=== PATIENT | female | born 1965 | race Hispanic/Latino ===

== ENCOUNTER 2016-08-05 16:38 | Observation (INO) | payer MEDICAID ==
[2016-08-05 18:22] LABS: BASO % 0.6 % (0.0-2.0); EOS # 0.1 K/uL (0.0-0.7); EOS % 2.1 % (0.0-4.0); HEMOGLOBIN 11.7 g/dL (11.0-16.0); LYMPH # 1.3 K/uL (1.0-4.3); LYMPH % 24.7 % (20.0-40.0); MEAN CELL VOLUME 86.6 fL (81.0-99.0); MEAN CORPUSCULAR HEMOGLOBIN 28.1 pg (27.0-31.0); MEAN CORPUSCULAR HGB CONC 32.5 g/dL (33.0-37.0); MEAN PLATELET VOLUME 7.1 fL (7.2-11.7); MONO # 0.5 K/uL (0.0-0.8); MONO % 9.1 % (0.0-10.0); NEUT # 3.3 K/uL (1.8-7.0); NEUT % 63.5 % (50.0-75.0); NRBC % 0.1 % (0.0-2.0); RBC 4.16 Mil/uL (3.80-5.20); RED CELL DISTRIBUTION WIDTH 14.5 % (11.5-14.5); WHITE BLOOD COUNT 5.2 K/uL (4.8-10.8)
[2016-08-05 18:32] LABS: ALBUMIN 2.8 g/dL (3.5-5.0)
[2016-08-05 18:35] LABS: ALB/GLOB RATIO 0.8 (1.0-2.1); ALT/SGPT 22 U/L (9-52); AST/SGOT 24 U/L (14-36); BLOOD UREA NITROGEN 13 mg/dL (7-17); GFR AFRICAN-AMERICAN > 60; GFR NON-AFRICAN AMERICAN > 60
[2016-08-05 18:36] LABS: CALCIUM 8.3 mg/dl (8.6-10.4)
[2016-08-05 18:43] LABS: SQUAMOUS EPITHIAL 1 /hpf (0-5); URINE BACTERIA RARE (<OCC); URINE BILIRUBIN NEGATIVE (NEGATIVE); URINE BLOOD NEGATIVE (NEGATIVE); URINE CLARITY Clear (Clear); URINE COLOR Yellow (YELLOW); URINE GLUCOSE (UA) NORMAL (Normal); URINE LEUKOCYTE ESTERASE NEG Leu/uL (Negative); URINE NITRATE NEGATIVE (NEGATIVE); URINE PROTEIN NEGATIVE (NEGATIVE)
[2016-08-05 18:45] LABS: HCG,QUALITATIVE URINE NEGATIVE (NEGATIVE)
[2016-08-05 18:49] LABS: BARBITURATES, UR NEGATIVE (NEGATIVE); BENZODIAZEPINES, UR NEGATIVE (NEGATIVE)
[2016-08-05 18:53] LABS: OPIATES, UR POSITIVE (NEGATIVE); PHENCYCLIDINE, UR NEGATIVE (NEGATIVE)
--- NOTE | 2016-08-05 19:40 | C.PDOC ---
History Of Present Illness <Siddharth Donald - Last Filed: 08/06/16 05:43> <IndioMaria Guadalupe Ellie - Last Filed: 08/10/16 18:48> Patient CLIF for psychiatric evaluation, apparently called 911 from [employer] [facility] stating that she doesn't want to live anymore. Patient denies specific plan for self harm, and denies suicidal ideations - states she will from "full blown AIDS". (Maria Guadalupe Borjas) <Siddharth Donald - Last Filed: 08/06/16 05:43> History Per: Patient, EMS History/Exam Limitations: other (agitation) Onset/Duration Of Symptoms: Unknown Current Symptoms Are (Timing): Still Present <Maria Guadalupe Borjas Ellie - Last Filed: 08/10/16 18:48> Time Seen by Provider: 08/05/16 16:44 Chief Complaint (Nursing): Psychiatric Evaluation Past Medical History Reviewed: Historical Data, Nursing Documentation, Vital Signs - Medical History PMH: Anxiety, Asthma, Bipolar Disorder, Bronchitis, COPD, Depression, Emphysema , HIV, Seizures (s/p craniotomy) Family History: States: No Known Family Hx - Social History Hx Tobacco Use: Yes Hx Alcohol Use: Yes Hx Substance Use: Yes (heroin) - Immunization History Hx Tetanus Toxoid Vaccination: No Hx Influenza Vaccination: Yes Hx Pneumococcal Vaccination: No <IndioMaria Guadalupe - Last Filed: 08/10/16 18:48> Vital Signs: Last Vital Signs Temp 98.4 F 08/06/16 03:25 Pulse 61 08/06/16 03:25 Resp 16 08/06/16 03:25 BP 132/89 08/06/16 03:25 Pulse Ox 95 08/06/16 03:25 - [facility] Procedures DETOXIFICATION SERVICES FOR SUBSTANCE ABUSE TREATMENT (04/09/16) Review Of Systems Except As Marked, All Systems Reviewed And Found Negative. Cardiovascular: Negative for: Chest Pain, Palpitations Respiratory: Negative for: Shortness of Breath Gastrointestinal: Negative for: Nausea, Vomiting, Abdominal Pain, Diarrhea Psych: Positive for: Suicidal ideation <Maria Guadalupe Borjas - Last Filed: 08/10/16 18:48> Physical Exam - Physical Exam Appears: Non-toxic, In Acute Distress (agitated) Oral Mucosa: Moist Cardiovascular: Rhythm Regular Respiratory: Normal Breath Sounds, No Rales, No Rhonchi, No Wheezing Gastrointestinal/Abdominal: Normal Exam, Bowel Sounds, Soft, No Tenderness Extremity: Normal ROM Extremity: Bilateral: Atraumatic, Normal Color And Temperature, Normal ROM Neurological/Psych: Oriented x3 <Maria Guadalupe Borjas - Last Filed: 08/10/16 18:48> ED Course And Treatment - Laboratory Results Result Diagrams: 08/05/16 18:19 08/05/16 18:19 Lab Interpretation: Abnormal (tox + cocaine/opiates) Pulse Ox Interpretation: Normal Reevaluation Time: 05:44 Reassessment Condition: Improved (coherent, refuses to speak with Crisis workers , wants meds for withdrawal symptoms but uncooperative with staff. Wants immediate discharge, now denies SI/HI) <Siddharth Donald - Last Filed: 08/06/16 05:43> - Laboratory Results Result Diagrams: 08/05/16 18:19 08/05/16 18:19 O2 Sat by Pulse Oximetry: 96 (RA) Pulse Ox Interpretation: Normal Progress Note: While nurse trying to get blood work, patient started screaming and yelling, spitting at staff, belligerent. Ativan 2mg + Haldol 10mg IM ordered. 7:35pm- Patient medically cleared. Pending crisis. Reassessment Condition: Improved <Maria Guadalupe Borjas - Last Filed: 08/10/16 18:48> Medical Decision Making <Siddharth Donald - Last Filed: 08/06/16 05:43> <Maria Guadalupe Borjas - Last Filed: 08/10/16 18:48> Medical Decision Making: homeless, cocaine/heroine abuse. (Siddharth Donald) Disposition Doctor Will See Patient In The: Office Counseled Patient/Family Regarding: Studies Performed, Diagnosis - Disposition Disposition Time: 05:45 <Siddharth Donald - Last Filed: 08/06/16 05:43> - Disposition Disposition Time: 01:15 <Maria Guadalupe Borjas - Last Filed: 08/10/16 18:48> - Disposition Condition: STABLE - Clinical Impression Clinical Impression: Substance abuse, Depression Addendum <Siddharth Donald - Last Filed: 08/06/16 05:43> <Maria Guadalupe Borjas - Last Filed: 08/10/16 18:48> Addendum: 08/06/16 05:33 Upon re-evaluation patient seems bizzare and nonsensical. Patient denies any opiate or cocaine abuse. Patient is non-cooperative with staff and spitting on the floor, ranting incoherently. Multiple crisis evaluators have attempted to speak with the patient but she refused. Patient is ambulating in the ED and going to the bathroom on her own. (Siddharth Donald) Physician Patient Turnover Patient Signed Over To: Siddharth Donald Handoff Comments: signed out pending crisis evaluation, reassessment <Maria Guadalupe Borjas - Last Filed: 08/10/16 18:48>
[2016-08-05 23:21] VITALS: TEMP 98.4
[2016-08-06 03:29] VITALS: BP 132/89; PULSE 61; RESP 16
[2016-08-10 18:49] VITALS: O2SAT 96
== END 2016-08-06 05:43 | disposition home or self-care (01) ==
LOC: C.ER 16:38 → C.9OBSV 19:00
PROVIDERS: ADMIT Emergency Medicine; ATTEND Emergency Medicine
DX: F11.10 Opioid abuse, uncomplicated (principal); F14.19 Cocaine abuse with unspecified cocaine-induced disorder; R45.851 Suicidal ideations; J45.909 Unspecified asthma, uncomplicated; F31.9 Bipolar disorder, unspecified; F32.9 Major depressive disorder, single episode, unspecified; B20 Human immunodeficiency virus [HIV] disease
CPT/HCPCS: 80053; 80320; 80324; 80345; 80346; 80349; 80353; 80358; 80361; 81001; 82948; 83992; 84703; 85025; 96372; 99285; G0378; J1630; J2060

== ENCOUNTER 2016-08-09 02:59 | Observation (INO) | payer MEDICAID ==
--- NOTE | 2016-08-09 03:10 | C.PDOC ---
History Of Present Illness pt states she did 4 bags of heroin., Not suicidal or homicidal No complaints Time Seen by Provider: 08/09/16 03:09 History/Exam Limitations: no limitations Onset/Duration Of Symptoms: Hrs Current Symptoms Are (Timing): Still Present Suicide/Self Injury Attempted (Context): None Modifying Factor(s): Other (heroin) Severity: Moderate Pain Scale Rating Of: 4 Associated Symptoms: denies: Anger, Anxiety Recent travel outside of the [place]: No Additional History Per: EMS Past Medical History Reviewed: Historical Data, Nursing Documentation, Vital Signs Vital Signs: Last Vital Signs Temp 97.5 F L 08/09/16 03:14 Pulse 60 08/09/16 03:14 Resp 20 08/09/16 03:14 BP 103/64 08/09/16 03:14 Pulse Ox 94 L 08/09/16 03:37 - Medical History PMH: Anxiety, Asthma, Bipolar Disorder, Bronchitis, COPD, Depression, Emphysema , HIV, Seizures (s/p craniotomy) Denies: Chronic Kidney Disease - [facility] Procedures DETOXIFICATION SERVICES FOR SUBSTANCE ABUSE TREATMENT (04/09/16) Family History: States: No Known Family Hx - Social History Hx Tobacco Use: Yes Hx Alcohol Use: Yes Hx Substance Use: Yes (heroin) - Immunization History Hx Tetanus Toxoid Vaccination: No Hx Influenza Vaccination: Yes Hx Pneumococcal Vaccination: No Review Of Systems Constitutional: Negative for: Fever, Chills Eyes: Negative for: Pain ENT: Negative for: Throat Pain Cardiovascular: Negative for: Chest Pain Respiratory: Negative for: Shortness of Breath Gastrointestinal: Negative for: Nausea Genitourinary: Negative for: Dysuria Musculoskeletal: Negative for: Back Pain Skin: Negative for: Rash Neurological: Negative for: Weakness Psych: Negative for: Anxiety, Suicidal ideation Physical Exam - Physical Exam Appears: Non-toxic Skin: Warm, Dry Head: Normacephalic Eye(s): bilateral: Normal Inspection Oral Mucosa: Moist Neck: Supple Chest: Symmetrical Cardiovascular: Rhythm Regular Respiratory: No Rales, No Rhonchi, No Wheezing Gastrointestinal/Abdominal: Soft Back: No CVA Tenderness Extremity: Normal ROM Extremity: Bilateral: Atraumatic Neurological/Psych: Oriented x3 Gait: Unsteady ED Course And Treatment O2 Sat by Pulse Oximetry: 94 Pulse Ox Interpretation: Normal Disposition Counseled Patient/Family Regarding: Studies Performed, Diagnosis - Disposition Disposition Time: 03:10 Condition: UNKNOWN - Clinical Impression Clinical Impression: Heroin abuse Physician Patient Turnover Patient Signed Over To: Patricio Mujica Handoff Comments: pending re-eval and discharge
[2016-08-09 06:22] VITALS: TEMP 97.4
[2016-08-09 08:58] VITALS: RESP 18; O2SAT 97
[2016-08-09 10:50] VITALS: BP 94/54; PULSE 65
[2016-08-09] MEDS ORDERED: Albuterol-Ipratrop 3 mg / 0.5 (3 ml) UD ONE (11:06)
== END 2016-08-09 12:38 | disposition home or self-care (01) ==
LOC: C.ER 02:59 → C.9OBSV 03:37
PROVIDERS: ADMIT Emergency Medicine; ATTEND Emergency Medicine
DX: F11.10 Opioid abuse, uncomplicated (principal); F31.9 Bipolar disorder, unspecified; J44.9 Chronic obstructive pulmonary disease, unspecified; Z87.891 Personal history of nicotine dependence; Z21 Asymptomatic human immunodeficiency virus [HIV] infection status
CPT/HCPCS: 82948; G0378

== ENCOUNTER 2016-09-21 23:39 | Emergency (ER) | payer MEDICAID ==
[2016-09-22 00:03] VITALS: BP 121/70; PULSE 94; RESP 16; TEMP 98.6; O2SAT 95
--- NOTE | 2016-09-22 00:58 | C.PDOC ---
History Of Present Illness Pt is homeless and uses heroin. States she has a cough and does not feel well. speaking in complete sentences. No f/c/n/v Time Seen by Provider: 09/22/16 00:57 Chief Complaint (Nursing): Cough, Cold, Congestion History Per: Patient History/Exam Limitations: no limitations Onset/Duration Of Symptoms: Days Current Symptoms Are (Timing): Still Present Initiating Event: Upper Respiratory Illness Exacerbating Factor(s): Coughing Current Respiratory Medications: None Severity: Moderate Pain Scale Rating Of: 4 Associated Symptoms: denies: Fever, Chills, Sweating, Chest Pain, Bloody Cough Recent travel outside of the [place]: No Past Medical History Reviewed: Historical Data, Nursing Documentation, Vital Signs Vital Signs: Last Vital Signs Temp 98.6 F 09/21/16 23:56 Pulse 94 H 09/21/16 23:56 Resp 16 09/21/16 23:56 BP 121/70 09/21/16 23:56 Pulse Ox 95 09/22/16 02:04 - Medical History PMH: Anxiety, Asthma, Bipolar Disorder, Bronchitis, COPD, Depression, Emphysema , HIV (from previous chart), Seizures (s/p craniotomy) Denies: Chronic Kidney Disease - [facility] Procedures DETOXIFICATION SERVICES FOR SUBSTANCE ABUSE TREATMENT (04/09/16) Family History: States: No Known Family Hx - Social History Hx Tobacco Use: Yes Hx Alcohol Use: No Hx Substance Use: Yes (heroin) - Immunization History Hx Tetanus Toxoid Vaccination: No Hx Influenza Vaccination: Yes Hx Pneumococcal Vaccination: No Review Of Systems Constitutional: Negative for: Fever, Chills Eyes: Negative for: Redness ENT: Negative for: Throat Pain Cardiovascular: Negative for: Chest Pain, Palpitations Respiratory: Positive for: Cough. Negative for: Shortness of Breath Gastrointestinal: Negative for: Nausea, Vomiting Genitourinary: Negative for: Dysuria Musculoskeletal: Negative for: Back Pain Skin: Positive for: Rash Neurological: Negative for: Weakness Psych: Negative for: Anxiety Physical Exam - Physical Exam Appears: Non-toxic, No Acute Distress Skin: Warm, Dry Head: Normacephalic Eye(s): bilateral: Normal Inspection Ear(s): Bilateral: Normal Oral Mucosa: Moist Throat: No Erythema Neck: Supple Chest: Symmetrical Cardiovascular: Rhythm Regular Respiratory: No Rales, Rhonchi, Wheezing (few) Gastrointestinal/Abdominal: Soft, No Tenderness Back: No CVA Tenderness Extremity: Normal ROM Extremity: Bilateral: Atraumatic Neurological/Psych: Oriented x3, Normal Speech, Normal Cognition Gait: Steady ED Course And Treatment - Laboratory Results Result Diagrams: 09/22/16 01:14 09/22/16 01:14 O2 Sat by Pulse Oximetry: 95 Pulse Ox Interpretation: Normal - Radiology CXR: Interpreted by Me, Viewed By Me CXR Interpretation: Yes: COPD, Other (uncahnged from 2016). No: Infiltrates, Fracture Reevaluation Time: 05:06 Reassessment Condition: Improved Disposition Counseled Patient/Family Regarding: Studies Performed, Diagnosis, Need For Followup, Rx Given - Disposition Referrals: [facility] [Outside] Disposition: HOME/ ROUTINE Disposition Time: 00:58 Condition: FAIR Prescriptions: Albuterol HFA [Ventolin HFA 90 mcg/actuation (8 g)] 2 puff IH [id number] PRN #1 puff PRN Reason: Wheezing Azithromycin [Zithromax Tri-Adan] 500 mg PO DAILY #3 tablet Instructions: Upper Respiratory Infection (ED), Narcotic Abuse (ED) - Clinical Impression Clinical Impression: Heroin abuse, URI (upper respiratory infection)
[2016-09-22 01:20] LABS: BASO % 0.4 % (0.0-2.0); EOS % 0.2 % (0.0-4.0); HEMATOCRIT 40.5 % (34.0-47.0); LYMPH # 1.3 K/uL (1.0-4.3); LYMPH % 12.8 % (20.0-40.0); MEAN CELL VOLUME 86.9 fL (81.0-99.0); MEAN CORPUSCULAR HEMOGLOBIN 27.8 pg (27.0-31.0); MEAN PLATELET VOLUME 6.9 fL (7.2-11.7); MONO # 0.6 K/uL (0.0-0.8); NRBC % 0.1 % (0.0-2.0); RED CELL DISTRIBUTION WIDTH 15.7 % (11.5-14.5); WHITE BLOOD COUNT 9.9 K/uL (4.8-10.8)
[2016-09-22 01:27] LABS: CHLORIDE 100 mmol/L (98-107); POTASSIUM 3.9 mmol/L (3.6-5.2); SODIUM 134 mmol/L (132-148)
[2016-09-22 01:29] LABS: BILIRUBIN,TOTAL 0.7 mg/dL (0.2-1.3); CARBON DIOXIDE 25 mmol/L (22-30); GFR AFRICAN-AMERICAN > 60
[2016-09-22 01:30] LABS: ALB/GLOB RATIO 0.8 (1.0-2.1); ALCOHOL SERUM < 10 mg/dl (0-10); ALKALINE PHOSPHATASE 54 U/L (38-126); ALT/SGPT 27 U/L (9-52); AST/SGOT 29 U/L (14-36); BLOOD UREA NITROGEN 18 mg/dL (7-17); CALCIUM 8.8 mg/dl (8.6-10.4); GLUCOSE,RANDOM 106 mg/dL (65-105); TOTAL PROTEIN 7.8 g/dL (6.3-8.3)
[2016-09-22] MEDS: Albuterol-Ipratrop 3 mg / 0.5 (3 ml) UD IH SCH ×3 (01:30→02:00)
[2016-09-22] MEDS ORDERED: Albuterol-Ipratrop 3 mg / 0.5 (3 ml) UD ONE ×3 (01:34→01:35)
--- NOTE | 2016-09-22 08:56 | RAD ---
PROCEDURE: CHEST RADIOGRAPH, 1 VIEW HISTORY: cough COMPARISON: 06/04/2015. FINDINGS: LUNGS: The right lung is clear. There are multiple surgical clips in the left hilar region with shift of mediastinal to the left and low lung volume on the left. PLEURA: The right costophrenic angle has been excluded from the film. There is chronic left pleural thickening. No pneumothorax. CARDIOVASCULAR: Normal. OSSEOUS STRUCTURES: No significant abnormalities. VISUALIZED UPPER ABDOMEN: Normal. OTHER FINDINGS: None. IMPRESSION: Stable low lung volume on the left with chronic left pleural thickening. The right lung is clear.
== END 2016-09-22 06:09 | disposition home or self-care (01) ==
LOC: C.ER 23:39
DX: J06.9 Acute upper respiratory infection, unspecified (principal); F11.10 Opioid abuse, uncomplicated; Z59.0 Homelessness

== ENCOUNTER 2016-09-27 04:41 | Emergency (ER) | payer MEDICAID ==
--- NOTE | 2016-09-27 05:08 | C.PDOC ---
History Of Present Illness 51 year old female who presents to the ER with a complaint bilateral knee pain since yesterday after falling. Patient is known to be homeless and upon arrival to ER she went to sleep and is declining interview or examination. Patient has verbalized any other complaints at this time. Chief Complaint (Nursing): Lower Extremity Problem/Injury History Per: Patient History/Exam Limitations: no limitations Onset/Duration Of Symptoms: Days Current Symptoms Are (Timing): Still Present Recent travel outside of the [place]: No - Knee Description Of Injury: Fell Past Medical History Reviewed: Historical Data, Nursing Documentation, Vital Signs Vital Signs: Last Vital Signs Temp 97.9 F 09/27/16 05:08 Pulse 73 09/27/16 05:08 Resp 17 09/27/16 05:08 BP 165/69 H 09/27/16 05:08 Pulse Ox 99 09/27/16 05:08 - Medical History PMH: Anxiety, Asthma, Bipolar Disorder, Bronchitis, COPD, Depression, Emphysema , HIV (from previous chart), Seizures (s/p craniotomy) Surgical History: No Surg Hx - [facility] Procedures DETOXIFICATION SERVICES FOR SUBSTANCE ABUSE TREATMENT (04/09/16) Family History: States: Unknown Family Hx - Social History Hx Tobacco Use: Yes Hx Alcohol Use: No Hx Substance Use: Yes (heroin) - Immunization History Hx Tetanus Toxoid Vaccination: No Hx Influenza Vaccination: Yes Hx Pneumococcal Vaccination: No Review Of Systems Musculoskeletal: Positive for: Leg Pain. Negative for: Neck Pain, Shoulder Pain , Arm Pain, Back Pain, Hand Pain, Foot Pain Neurological: Negative for: Weakness, Numbness Physical Exam - Physical Exam Appears: Non-toxic, No Acute Distress, Other (Sleeping on her side) Skin: Normal Color, Warm, Dry Head: Atraumatic, Normacephalic Extremity: No Tenderness, No Calf Tenderness, No Deformity, No Swelling Pulses: Left Dorsalis Pedis: Normal, Right Dorsalis Pedis: Normal ED Course And Treatment Progress Note: Bilateral knee x-ray ordered. Patient declined knee x-rays and all other treatment, will discharge home. Disposition - Disposition Referrals: Non [facility] Provider, [Primary Care Provider] - Disposition: HOME/ ROUTINE Disposition Time: 05:33 Condition: STABLE Additional Instructions: Follow up in clinic within 2-3 days. Return to ED if feel worse. Prescriptions: Ibuprofen [Motrin Tab] 400 mg PO Q8 #30 tab Instructions: Knee Pain (ED) Forms: [facility] ([place]) - Clinical Impression Clinical Impression: Knee pain, bilateral - Scribe Statement The provider has reviewed the documentation as recorded by the Scribe King Jaeger All medical record entries made by the Scribe were at my direction and personally dictated by me. I have reviewed the chart and agree that the record accurately reflects my personal performance of the history, physical exam, medical decision making, and the department course for this patient. I have also personally directed, reviewed, and agree with the discharge instructions and disposition.
[2016-09-27 05:14] VITALS: BP 165/69; PULSE 73; RESP 17; TEMP 97.9; O2SAT 99
== END 2016-09-27 05:56 | disposition home or self-care (01) ==
LOC: C.ER 04:41 → SUPCPDRO 04:41 → C.ER 05:56
DX: M25.562 Pain in left knee (principal); M25.561 Pain in right knee

== ENCOUNTER → 2016-11-15 12:46 | Emergency (ER) | payer MEDICAID | END | disposition left against medical advice (07) | LOC: C.ER 12:46 | DX: Z02.89 Encounter for other administrative examinations (principal); F19.10 Other psychoactive substance abuse, uncomplicated ==

== ENCOUNTER 2017-02-05 06:10 | Inpatient (IN) | payer MEDICAID ==
--- NOTE | 2017-02-05 07:39 | C.PDOC ---
History Of Present Illness Patient is a 51 year old female brought to ED via ambulance requesting heroin detox. Pt states she is going through heroin withdrawal. Pt complaints of large mass on the left side of her neck. Denies SI, HI, fever, or any other physical complaints at this time. Time Seen by Provider: 02/05/17 07:34 Chief Complaint (Nursing): Substance Abuse History Per: Patient History/Exam Limitations: no limitations Onset/Duration Of Symptoms: Gradual Current Symptoms Are (Timing): Still Present Suicide/Self Injury Attempted (Context): None Associated Symptoms: denies: Suicidal Thoughts, Suicidal Plan Involuntary Hold By: None Recent travel outside of the [place]: No Additional History Per: Patient Past Medical History Reviewed: Historical Data, Nursing Documentation, Vital Signs Vital Signs: Last Vital Signs Temp 98.6 F 02/05/17 15:38 Pulse 52 L 02/05/17 15:38 Resp 16 02/05/17 15:38 BP 126/70 02/05/17 15:38 Pulse Ox 95 02/05/17 15:38 - Medical History PMH: Anxiety, Asthma, Bipolar Disorder, Bronchitis, COPD, Depression, Emphysema , HIV (from previous chart), Seizures (s/p craniotomy) Denies: Chronic Kidney Disease - [facility] Procedures DETOXIFICATION SERVICES FOR SUBSTANCE ABUSE TREATMENT (04/09/16) Family History: States: Unknown Family Hx - Social History Hx Tobacco Use: Yes Hx Alcohol Use: No Hx Substance Use: Yes (heroin) - Immunization History Hx Tetanus Toxoid Vaccination: No Hx Influenza Vaccination: Yes Hx Pneumococcal Vaccination: No Review Of Systems Except As Marked, All Systems Reviewed And Found Negative. Constitutional: Negative for: Fever, Chills Cardiovascular: Negative for: Chest Pain, Palpitations Respiratory: Negative for: Cough, Shortness of Breath Musculoskeletal: Positive for: Neck Pain (large mass to left side of neck) Psych: Positive for: Withdrawal. Negative for: Suicidal ideation Physical Exam - Physical Exam Appears: Non-toxic, No Acute Distress Skin: Normal Color, Warm, Dry, No Rash Head: Atraumatic, Normacephalic Eye(s): bilateral: Normal Inspection, PERRL, EOMI Nose: Normal Oral Mucosa: Moist, No Drooling Tongue: Normal Appearing Lips: Normal Appearing Throat: No Erythema, No Exudate Neck: Normal ROM, Supple, Other (large firm mass to left side of neck, no evidence of skin changes. No erythema or induration) Chest: Symmetrical Cardiovascular: Rhythm Regular, No Friction Rub, No Murmur Respiratory: Normal Breath Sounds, No Rales, No Rhonchi, No Wheezing Gastrointestinal/Abdominal: Bowel Sounds (active), Soft, No Tenderness Back: Normal Inspection Extremity: Normal ROM, No Deformity, No Swelling Neurological/Psych: Oriented x3, Normal Speech, Normal Motor Gait: Steady ED Course And Treatment - Laboratory Results Result Diagrams: 02/05/17 08:08 02/05/17 08:08 O2 Sat by Pulse Oximetry: 97 (RA) Pulse Ox Interpretation: Normal - Radiology CXR: Interpreted by Vt CXR Interpretation: Yes: No Acute Disease. No: Infiltrates - CT Scan/US Neck soft tissue CT Other Rad Studies (CT/US): Read By Radiologist, Radiology Report Reviewed CT/US Interpretation: PROCEDURE: CT NECK WITH CONTRAST. HISTORY: large mass to L side. COMPARISON: None. TECHNIQUE: CT of the neck with intravenous contrast. Coronal and sagittal reformats generated. Intravenous contrast dose: 100 mL Visipaque. Radiation dose: DLP mGy-cm. This CT exam was performed using one or more of the following dose reduction techniques: Automated exposure control, adjustment of the mA and/or kV according to patient size, and/ or use of iterative reconstruction technique. FINDINGS: NASOPHARYNX: No evidence of soft tissue mass lesion or fluid collection in the nasopharynx. SUPRAHYOID NECK: Mild zybp-gh-ddnyk shift noted at the suprahyoid neck due to left neck low-attenuation collection or cystic lesion . There is low- attenuation collection or cystic lesion at at the left sternocleidomastoids muscles extending from the submental region to the mid neck and measures 6 centimeter in the largest AP diameter and 4.2 centimeter in the transverse diameter. Findings may represent large hematoma versus abscess formation. The possibility of cystic neoplasm is less likely. Otherwise unremarkable oropharynx , oral cavity, parapharyngeal space and retropharyngeal space. INFRAHYOID NECK : Unremarkable larynx, hypopharynx, and supraglottic space. Vocal cords intact. MASS: Low-attenuation fluid collection or cystic mass lesion at the left sternocleidomastoids as described above. GLANDS: Parotid and submandibular glands unremarkable. Normal size thyroid gland, without nodule. LYMPH NODES: Normal. No lymphadenopathy. CERVICAL SPINE: No fracture or focal lesion. VASCULAR STRUCTURES: The common carotid arteries are patent. The left jugular veins are prominent in size likely due to compression on the jugular vein by the cystic lesion. OTHER FINDINGS: Advanced emphysematous changes are noted at the lung apices which has not significantly changed when compared to the previous CT dated 02/09/2013. IMPRESSION: 6 x 4.2 centimeter fluid collection or cystic mass centered at the left sternocleidomastoid muscles extending from the submental region to the mid neck and compressing on the adjacent structure. The differential consideration includes hematoma versus abscess formation. The possibility of cystic mass lesion is less likely but not totally excluded. Further evaluation by ultrasound or MRI may be helpful. Medical Decision Making Medical Decision Making: Plan: * Blood work * Urinalysis * Neck soft tissue CT * Catapres, Toradol, and Zofran * Reassess and dispo The CT scan shows cystic mass which is hematoma vs. abscess. The case was discussed with Dr. Medina who states that the mass needs to be aspirated. psychiatry resident at bedside and aspirated 30cc of yellow/straw colored fluid from the mass. Patient tolerating procedure well and feels improvement. Wound cultures and specimen sent for histology and cytology. Surgeon states that she does not require admission for this and is cleared for psych. 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 - Scribe Statement The provider has reviewed the documentation as recorded by the Nancy Denny All medical record entries made by the Nancy were at my direction and personally dictated by me. I have reviewed the chart and agree that the record accurately reflects my personal performance of the history, physical exam, medical decision making, and the department course for this patient. I have also personally directed, reviewed, and agree with the discharge instructions and disposition.
[2017-02-05 08:15] LABS: BASO % 0.6 % (0.0-2.0); EOS % 0.6 % (0.0-4.0); HEMOGLOBIN 12.1 g/dL (11.0-16.0); LYMPH # 0.7 K/uL (1.0-4.3); LYMPH % 13.3 % (20.0-40.0); MEAN CORPUSCULAR HGB CONC 33.3 g/dL (33.0-37.0); MEAN PLATELET VOLUME 7.6 fL (7.2-11.7); MONO # 0.4 K/uL (0.0-0.8); MONO % 6.8 % (0.0-10.0); NEUT # 4.2 K/uL (1.8-7.0); NEUT % 78.7 % (50.0-75.0); RBC 4.32 Mil/uL (3.80-5.20); WHITE BLOOD COUNT 5.4 K/uL (4.8-10.8)
[2017-02-05 08:58] LABS: ALBUMIN 3.2 g/dL (3.5-5.0); ALT/SGPT 24 U/L (9-52); AST/SGOT 21 U/L (14-36); BLOOD UREA NITROGEN 18 mg/dL (7-17); GFR AFRICAN-AMERICAN > 60; GFR NON-AFRICAN AMERICAN > 60
[2017-02-05 09:00] LABS: ALB/GLOB RATIO 0.9 (1.0-2.1)
[2017-02-05 09:08] LABS: HCG,QUALITATIVE URINE NEGATIVE (NEGATIVE)
[2017-02-05 09:16] LABS: SQUAMOUS EPITHIAL 5 /hpf (0-5); URINE BACTERIA RARE (<OCC); URINE BILIRUBIN NEGATIVE (NEGATIVE); URINE BLOOD NEGATIVE (NEGATIVE); URINE CLARITY Hazy (Clear); URINE COLOR Yellow (YELLOW); URINE GLUCOSE (UA) NORMAL (Normal); URINE LEUKOCYTE ESTERASE NEG Leu/uL (Negative); URINE NITRATE NEGATIVE (NEGATIVE); URINE PROTEIN NEGATIVE (NEGATIVE)
[2017-02-05 09:17] LABS: BARBITURATES, UR NEGATIVE (NEGATIVE); BENZODIAZEPINES, UR NEGATIVE (NEGATIVE); PHENCYCLIDINE, UR NEGATIVE (NEGATIVE)
[2017-02-05 09:34] LABS: OPIATES, UR POSITIVE (NEGATIVE)
[2017-02-05] MEDS ORDERED: Iodixanol 320 MG/ML 100 ML BOTTLE IV ONE (11:06)
--- NOTE | 2017-02-05 12:14 | CT ---
PROCEDURE: CT NECK WITH CONTRAST HISTORY: large mass to L side COMPARISON: None TECHNIQUE: CT of the neck with intravenous contrast. Coronal and sagittal reformats generated. Intravenous contrast dose: 100 mL Visipaque. Radiation dose: DLP mGy-cm This CT exam was performed using one or more of the following dose reduction techniques: Automated exposure control, adjustment of the mA and/or kV according to patient size, and/or use of iterative reconstruction technique. FINDINGS: NASOPHARYNX: No evidence of soft tissue mass lesion or fluid collection in the nasopharynx SUPRAHYOID NECK: Mild qrrn-dq-stbvd shift noted at the suprahyoid neck due to left neck low-attenuation collection or cystic lesion . There is low-attenuation collection or cystic lesion at at the left sternocleidomastoids muscles extending from the submental region to the mid neck and measures 6 centimeter in the largest AP diameter and 4.2 centimeter in the transverse diameter. Findings may represent large hematoma versus abscess formation. The possibility of cystic neoplasm is less likely. Otherwise unremarkable oropharynx, oral cavity, parapharyngeal space and retropharyngeal space. INFRAHYOID NECK: Unremarkable larynx, hypopharynx, and supraglottic space. Vocal cords intact. MASS: Low-attenuation fluid collection or cystic mass lesion at the left sternocleidomastoids as described above. GLANDS: Parotid and submandibular glands unremarkable. Normal size thyroid gland, without nodule. LYMPH NODES: Normal. No lymphadenopathy. CERVICAL SPINE: No fracture or focal lesion. VASCULAR STRUCTURES: The common carotid arteries are patent. The left jugular veins are prominent in size likely due to compression on the jugular vein by the cystic lesion. OTHER FINDINGS: Advanced emphysematous changes are noted at the lung apices which has not significantly changed when compared to the previous CT dated 02/09/2013 IMPRESSION: 6 x 4.2 centimeter fluid collection or cystic mass centered at the left sternocleidomastoid muscles extending from the submental region to the mid neck and compressing on the adjacent structure. The differential consideration includes hematoma versus abscess formation. The possibility of cystic mass lesion is less likely but not totally excluded. Further evaluation by ultrasound or MRI may be helpful.
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
--- NOTE | 2017-02-05 15:33 | RAD ---
HISTORY: cough, COMPARISON: Comparison is made to 01/04/2027 FINDINGS: LUNGS: Small size left lung is again noted. Mild hyperinflation of the left more than right lungs. Prominent lung markings suspicious for pulmonary vascular congestion. PLEURA: Blunting of the left costophrenic angle which could be due to pleural thickening or pleural effusion. CARDIOVASCULAR: The cardiac silhouette is prominent in size. Normal. OSSEOUS STRUCTURES: No significant abnormalities. VISUALIZED UPPER ABDOMEN: Normal. OTHER FINDINGS: None. IMPRESSION: No significant interval change noted since the previous exam. Mild pulmonary vascular congestion. Small size left lung.
[2017-02-05 15:53] VITALS: BP 126/70; PULSE 52; TEMP 98.6
[2017-02-05 17:17] VITALS: O2SAT 97
[2017-02-05] MEDS ORDERED: Albuterol HFA 90 mcg/actuation (8 g) INH PRN (17:30)
[2017-02-05] MEDS ORDERED: Phenytoin 100 mg/4 ml Oral Susp UD PO SCH (18:00)
[2017-02-05 19:08] VITALS: RESP 18
--- NOTE | 2017-02-05 21:47 | PCM.BM ---
Treatment Plan Problems - Problems identified on initial assessmt Depression Date Initiated: 02/05/17 Time Initiated: 16:45 Assessment reference: NA Opiate Abuse Date Initiated: 02/05/17 Time Initiated: 16:45 Status: Monitor Treatment assets and liabiliti Patient Liabilities: financial problems, poor support system, substance abuse ( Opiates, Cocaine), medical problems (HIV, Hep C) - Milieu Protocol Maintain good personal hygiene: daily Encourage regular showers, daily Remind patient to perform daily oral care Maintain personal safety: every shift Educate patient to report safety concerns to staff, every shift Monitor environment for contraband/sharps Medication safety: Monitor for expected outcome, potential side effects: every shift, Assess barriers to learning: every shift, Assess readiness for medication education: every shift
--- NOTE | 2017-02-06 12:02 | PCM.PYCHDC ---
Mental Status Examination - Mental Status Examination Orientation: Person, Place, Situation, Time Memory: Intact Mood: Other Affect: Broad Speech: Loud, Pressured Attention: WNL Concentration: WNL Association: WNL Fund of Knowledge: WNL Formal Thought Process: No Impairment Description of patient's judgement and insight: partially impaired Psychotic Thoughts and Behaviors: denies any AVH Suicidal Ideation: No Current Homicidal Ideation?: No Discharge Summary - Discharge Note Reason for Hospitalization: This is a 51 y/ AAF who was presented to the ED via EMS who reported that patient was picked up from a homeless custodial complaining of physical pain from heroin withdrawals and a growth on patient's neck. Pt at time of contact reported abusing a bundle of heroin daily for the last 20 years. Pt reported experiencing acute abdomen pain and nausea secondary to opiod withdrawal. Pt further reported an abnormal lateral growth on her neck which has worsened since last week. Pt requested to be admitted to detox and followed-up medically for chronic medical issues inclusive of a Seizure Disorder and COPD. Pt in addition to the above issues has a history of manic-depression and has been non- compliant with mood stabilizers for the last several years. Pt made mentioned of being unable to follow-up with a treating psychiatrist due to unstable housing and a transient existence. Pt at time contact appeared to be in severe mental and physical distress exacerbated by non-compliance with medical/ psychiatric treatment and opiod withdrawals. Pt during the assessment process presented as irritable, impatience, and dora with inquiry responses. Pt was dismissive of psychiatric complaints despite an observation of mood disturbances and mental decline. Pt was offered and receptive to voluntary admission for the purpose of mental stabilization and opiod detoxification. Consultations:: List each consultation separately and include: 1. Reason for request. 2. Findings. 3. Follow-up Summary of Hospital Course include:: 1. Description of specific treatment plan utilized for patients during their course of treatmen. 2. Summarize the time- course for resolution of acute symptoms and/or regressed behaviors. 3. Describe issues identified and worked on during hospitalization. 4. Describe medication utilized. 5. Describe medical problems identified and treated. 6. Reassessment of suicide risk - Final Diagnosis (DSM 5) Condition upon Discharge: STABLE DSM 5: Pt remained very irritable and agitated in the unit. She became aggressive and agitated with the staff and had a verbal altercation with the staff and demanded to get discharge AMA. She signed herself AMA. However she denied any suicidal ideation or homicidal ideation and denied any auditory or visual hallucinations. Disposition: AGAINST MEDICAL ADVICE Follow-up Treatment Plan: Pt was educated and counseled about the risks and benefits of taking and not taking medications. Pt was educated and counseled about the risks of drinking and abusing drugs. Pt was educated and counseled to go to the ER or call 911 if pt develop suicidal ideation or homicidal ideation, worsening of symptoms or severe side effects of the meds. - Smoking Cessation Smoking Cessation Medication prescribed: No - Antipsychotic Medications Pt discharged on 2 or more routine antipsychotic medications: No
--- NOTE | 2017-02-07 01:04 | PCM.PSYCH ---
Initial Psychiatric Evaluation - Initial Psychiatric Evaluation Type of Admission: Voluntary Legal Status: Capacity Chief Complaint (in patient's own words): i need help.' History of Present Illness and Precipitating Events: This is a 51 y/ AAF who was presented to the ED via EMS who reported that patient was picked up from a homeless assisted complaining of physical pain from heroin withdrawals and a growth on patient's neck. Pt at time of contact reported abusing a bundle of heroin daily for the last 20 years. Pt reported experiencing acute abdomen pain and nausea secondary to opiod withdrawal. Pt further reported an abnormal lateral growth on her neck which has worsened since last week. Pt requested to be admitted to detox and followed-up medically for chronic medical issues inclusive of a Seizure Disorder and COPD. Pt in addition to the above issues has a history of manic-depression and has been non- compliant with mood stabilizers for the last several years. Pt made mentioned of being unable to follow-up with a treating psychiatrist due to unstable housing and a transient existence. Pt at time contact appeared to be in severe mental and physical distress exacerbated by non-compliance with medical/ psychiatric treatment and opiod withdrawals. Pt during the assessment process presented as irritable, impatience, and dora with inquiry responses. Pt was dismissive of psychiatric complaints despite an observation of mood disturbances and mental decline. Pt was offered and receptive to voluntary admission for the purpose of mental stabilization and opiod detoxification. Pt remained very irritable and agitated in the unit. She started cursing and yelling staff and demanded to leave AMA. MS exam couldn't be performed as pt signed herself out AMA. Past Psychiatric History - Past Psychiatric History Previous Treatment History: None Pertinent Medical Hx (Current Medical&Sleep Prob, Allergies): Allergies Allergy/AdvReac Type Severity Reaction Status Date / Time No Known Allergies Allergy Verified 02/05/17 06:45 No Known Home Med 01/03/17 Review of Systems - Review of Systems All systems: reviewed and no additional remarkable complaints except - Psychiatric Psychiatric: Anxiety, Irritability DSM 5 DX - DSM 5 DSM 5 Diagnosis: Anxiety disoder Bipolar disorder Opioid use d/o severe Opioid withdrawal - Recommended/Plan of Treatment Treatment Recommendations and Plan of Treatment: Methadone taper CBT Psychoeducation Supportive therapy, group therapy, individual therapy Zoloft 50 mg by mouth daily Trazodone 50 mg by mouth daily at bedtime - Smoking Cessation Smoking Cessation Initiated: No
== END 2017-02-06 08:00 | disposition left against medical advice (07) | DRG 713 ==
LOC: C.ER 06:10 → C.9E 15:27 → C.5E 15:41
PROVIDERS: ADMIT Psychiatry & Neurology Psychiatry; ATTEND Psychiatry & Neurology Psychiatry
PROC: 0J953ZX Drainage of Left Neck Subcutaneous Tissue and Fascia, Percutaneous Approach, Diagnostic (ICD-10-PCS; principal; 2017-02-05)
PROC: HZ2ZZZZ Detoxification Services for Substance Abuse Treatment (ICD-10-PCS; 2017-02-05)
DX: F11.23 Opioid dependence with withdrawal (principal); B20 Human immunodeficiency virus [HIV] disease; L02.11 Cutaneous abscess of neck; J43.9 Emphysema, unspecified; F31.9 Bipolar disorder, unspecified; G40.909 Epilepsy, unspecified, not intractable, without status epilepticus; F41.9 Anxiety disorder, unspecified; Z91.19 Patient's noncompliance with other medical treatment and regimen; Z87.891 Personal history of nicotine dependence

== ENCOUNTER 2017-02-22 08:53 | Emergency (ER) | payer MEDICAID ==
[2017-02-22 08:59] VITALS: RESP 18; O2SAT 95
[2017-02-22 09:36] LABS: BASO % 0.8 % (0.0-2.0); EOS % 0.5 % (0.0-4.0); HEMOGLOBIN 11.3 g/dL (11.0-16.0); LYMPH # 0.7 K/uL (1.0-4.3); LYMPH % 15.5 % (20.0-40.0); MEAN CORPUSCULAR HEMOGLOBIN 27.7 pg (27.0-31.0); MEAN CORPUSCULAR HGB CONC 32.9 g/dL (33.0-37.0); MEAN PLATELET VOLUME 7.4 fL (7.2-11.7); MONO # 0.5 K/uL (0.0-0.8); MONO % 12.1 % (0.0-10.0); NEUT % 71.1 % (50.0-75.0); RBC 4.1 Mil/uL (3.80-5.20); RED CELL DISTRIBUTION WIDTH 14.9 % (11.5-14.5); WHITE BLOOD COUNT 4.3 K/uL (4.8-10.8)
[2017-02-22 09:44] LABS: HCG,QUALITATIVE URINE NEGATIVE (NEGATIVE)
[2017-02-22 09:45] LABS: INR 1.1; PROTHROMBIN TIME 11.9 SECONDS (9.7-12.2)
[2017-02-22 09:45] LABS: SQUAMOUS EPITHIAL 2 /hpf (0-5); URINE BILIRUBIN NEGATIVE (NEGATIVE); URINE BLOOD NEGATIVE (NEGATIVE); URINE CLARITY Clear (Clear); URINE COLOR Yellow (YELLOW); URINE GLUCOSE (UA) NORMAL (Normal); URINE LEUKOCYTE ESTERASE NEG Leu/uL (Negative); URINE NITRATE NEGATIVE (NEGATIVE); URINE PROTEIN NEGATIVE (NEGATIVE)
[2017-02-22 09:55] LABS: ALB/GLOB RATIO 0.8 (1.0-2.1); ALBUMIN 3.1 g/dL (3.5-5.0); ALT/SGPT 21 U/L (9-52); AST/SGOT 27 U/L (14-36); BLOOD UREA NITROGEN 14 mg/dL (7-17); GFR AFRICAN-AMERICAN > 60; GFR NON-AFRICAN AMERICAN > 60
[2017-02-22 10:16] LABS: BARBITURATES, UR NEGATIVE (NEGATIVE); BENZODIAZEPINES, UR NEGATIVE (NEGATIVE); PHENCYCLIDINE, UR NEGATIVE (NEGATIVE)
--- NOTE | 2017-02-22 10:39 | C.PDOC ---
History Of Present Illness 51 y/o female, with history of HIV, presents to the ER for evaluation of non- tender left sided neck mass which has worsened since evaluation on Feb 05, 2017 at [facility]. Drainage was performed for 45 cc's on Feb 05, 2017 and pathology showed that the mass was consistent with abscess, not cancer. The patient is well known for her persistent heroin and cocaine abuse due to prior visits to [facility]. Of note, the patient is homeless. Time Seen by Provider: 02/22/17 09:03 Chief Complaint (Nursing): Medical Clearance History Per: Patient History/Exam Limitations: no limitations Onset/Duration Of Symptoms: Days Current Symptoms Are (Timing): Still Present Severity: Moderate Past Medical History Reviewed: Historical Data, Nursing Documentation, Vital Signs Vital Signs: Last Vital Signs Temp 98.3 F 02/22/17 11:00 Pulse 62 02/22/17 11:00 Resp 18 02/22/17 11:00 BP 115/75 02/22/17 11:00 Pulse Ox 95 02/22/17 17:50 - Medical History PMH: Anxiety, Asthma, Bipolar Disorder, Bronchitis, COPD, CVA (R MCA territory with encephalomalacia), Depression, Emphysema, HIV (from previous chart), Seizures (s/p craniotomy) Denies: Diabetes, Hepatitis, HTN, Chronic Kidney Disease, Sexually Transmitted Disease Surgical History: No Surg Hx - [facility] DETOXIFICATION SERVICES FOR SUBSTANCE ABUSE TREATMENT (02/05/17) DRAINAGE OF POST NECK SUBCU/FASCIA, PERC APPROACH, DIAGN (02/05/17) Family History: States: No Known Family Hx - Social History Hx Tobacco Use: Yes Hx Alcohol Use: No Hx Substance Use: Yes - Immunization History Hx Tetanus Toxoid Vaccination: No Hx Influenza Vaccination: Yes Hx Pneumococcal Vaccination: No Review Of Systems Except As Marked, All Systems Reviewed And Found Negative. Constitutional: Negative for: Fever, Chills Respiratory: Negative for: Cough, Shortness of Breath Skin: Positive for: Other (neck mass) Physical Exam - Physical Exam Appears: No Acute Distress, Other (awake,alert) Skin: Normal Color, Warm, Other (no track cao, patient denies injecting into neck) Head: Atraumatic, Normacephalic Eye(s): bilateral: Normal Inspection, Other (pinpoint pupils) Nose: Normal Oral Mucosa: Moist Throat: Normal, No Erythema, No Exudate, Other (normal phonation) Neck: Other (large, firm mass on left side of neck approx. 8 x 5 cm) Cardiovascular: Rhythm Regular Respiratory: Normal Breath Sounds, No Accessory Muscle Use Extremity: Normal ROM Neurological/Psych: Oriented x3, Normal Speech, Normal Cognition, Normal Motor, Normal Sensation ED Course And Treatment - Laboratory Results Result Diagrams: 02/22/17 09:32 02/22/17 09:32 Lab Interpretation: Abnormal (tox + cocaine, opiates, etoh neg) Urine POC: Negative O2 Sat by Pulse Oximetry: 95 (RA) Pulse Ox Interpretation: Normal - Radiology CXR: Interpreted by [place] CXR Interpretation: Yes: No Acute Disease, Other (+ chronic changes) Progress Note: CXR and Neck CT ordered. Case discussed with rn medical surgical Lindsey. Lindsey is seeing patient. 1230 d/w Surg Leopoldo, will Consult and plan to drain L neck abscess. 1350: pt agitated, feels like withdrawal- offered Methadone and food. Pt unable to stay "have to go make some money" and left AMA despite our best efforts to keep pt comfortable and stay for her procedure- Surgery aware pt left AMA Reevaluation Time: 12:39 Reassessment Condition: Improved - Physician Consult Information Outcome Of Conversation: 1230: d/w Dr. Elias- Medicine Geodetic Surveyor- ok to Med/Surg Obs Medical Decision Making Medical Decision Making: acute on chronic L neck abscess, increased in size since drained 02/05/17 for approx 45 cc's, now enlarged to 8x5x6 cm again requiring drainage. Not acutely ill nor infected at this time. Prob related to IVDA to L neck though pt denies, as pt h/o cocaine/heroine abuse. ? HIV history but labs nl and no HAART therapy- consider retesting as inpt- prob poor candidate for HAART due to non-compliance issues. Adm to Medicine Geodetic Surveyor 1400: left AMA/non-compliant as in many prior evals- prob due to withdrawal, baseline bipolar, and h/o R MCA brain injury making good decisions difficult for this pt. Disposition Doctor Will See Patient In The: Hospital Counseled Patient/Family Regarding: Studies Performed, Diagnosis - Disposition Disposition: AGAINST MEDICAL ADVICE Disposition Time: 12:41 Condition: GOOD Forms: [facility] (Macanese) - Clinical Impression Clinical Impression: Neck abscess - Scribe Statement The provider has reviewed the documentation as recorded by the Scribe Harini Medrano Provider Attestation: All medical record entries made by the Scribe were at my direction and personally dictated by me. I have reviewed the chart and agree that the record accurately reflects my personal performance of the history, physical exam, medical decision making, and the department course for this patient. I have also personally directed, reviewed, and agree with the discharge instructions and disposition.
[2017-02-22 10:52] LABS: OPIATES, UR POSITIVE (NEGATIVE)
[2017-02-22] MEDS ORDERED: Iodixanol 320 MG/ML 100 ML BOTTLE IV ONE (10:54)
--- NOTE | 2017-02-22 11:25 | RAD ---
HISTORY: adm COMPARISON: Chest x-ray performed 02/05/17 TECHNIQUE: Chest, one view. FINDINGS: LUNGS: Diminutive left left lung field. Prominent interstitial markings. Left apical nodular pleural thickening. Medial right lower lobe patchy opacity ; correlate clinically for atelectasis or pneumonia. Left lower lobe pleural thickening/ effusion and/or consolidation. No definite pneumothorax. CARDIOVASCULAR: Cardiomegaly. Ectatic aorta. OSSEOUS STRUCTURES: Degenerative changes. Right 7th rib fracture deformity appears chronic. VISUALIZED UPPER ABDOMEN: Unremarkable. OTHER FINDINGS: None. IMPRESSION: Diminutive left lung field. Prominent interstitial markings. Left apical nodular pleural thickening. Medial right lower lobe patchy opacity ; correlate clinically for atelectasis or pneumonia. Left lower lobe pleural thickening/ effusion and/or consolidation. No definite pneumothorax.
--- NOTE | 2017-02-22 11:50 | CT ---
PROCEDURE: CT NECK WITH CONTRAST HISTORY: L neck mass x 3 weeks COMPARISON: Neck CT with contrast 02/05/2017. TECHNIQUE: CT of the neck with intravenous contrast. Coronal and sagittal reformats generated. Intravenous contrast dose: Visipaque 320, 100 cc. Radiation dose: DLP 245.34 mGy-cm This CT exam was performed using one or more of the following dose reduction techniques: Automated exposure control, adjustment of the mA and/or kV according to patient size, and/or use of iterative reconstruction technique. FINDINGS: NASOPHARYNX: Unremarkable. SUPRAHYOID NECK: There is a large left-sided cystic collection with mildly irregular michel in the periphery measuring 7.9 x 4.9 x 6.2 cm (these anterior posterior by transverse by superoinferior dimensions). Peripheral enhancement is only marginal at best. Overall volume of this fluid is slightly increased in the interval and remains inferior to the left parotid gland but apparently separate and deep to the sternocleidomastoid muscle once again. No emphysematous changes seen related. Left internal jugular vein remains completely compressed at the level of this cyst with the carotid space structures displaced medially once again. It in fact displaces the left submandibular anatomy anteriorly somewhat as well. Etiology of this finding is unclear and tissue diagnosis or aspiration is recommended if not already evaluated. Ultrasound or MRI for additional imaging modalities with MRI favored over ultrasound with a without contrast for additional characterization if needed. For diagnosis remains potential abscess though hematoma is less likely given increase in size and lack of evidence of acute or subacute hemorrhage at this time. Cystic neoplasm including that from the left parotid gland is a possibility. Lymphoma sign likely but is including in the differential diagnosis under other neoplasms. The remainder of the suprahyoid neck anatomy is remarkable only for thickening of the left piriform sinuses suspicious for potential infectious process it neoplasm is unlikely given the relatively normal appearance previously demonstrated. Epiglottis appears normal in overall thickness. INFRAHYOID NECK: Unremarkable larynx. Please see piriform sinus evaluation above. Vocal cords intact. MASS: Please see discussion above. GLANDS: Submandibular glands unremarkable. Normal size thyroid gland, without nodule. Please see discussion of left parotid space above. LYMPH NODES: Multifocal lymphadenopathy is appreciated primarily the inferior bilateral jugular digastric spaces extend somewhat into the left supraclavicular fossa. Prominent bulla partially captured at the left apex once again. CERVICAL SPINE: No fracture or focal lesion. VASCULAR STRUCTURES: Unremarkable. OTHER FINDINGS: Incidental note is made of prior right craniotomy with postop changes noted at the right temporal lobe region once again. IMPRESSION: Enlarging cystic lesion with irregular peripheral margins is appreciated at the left suprahyoid neck deep to the sternocleidomastoid muscle and inferior to the left parotid gland. It may be separate from the parotid gland but this is not definite. Consider possible abscess though cystic neoplasm is not excluded. Please see differential diagnosis above. Mild supra and infrahyoid neck lymphadenopathy or predominate the inferior jugular digastric space at the left.
[2017-02-22 12:55] VITALS: BP 115/75; PULSE 62; TEMP 98.3
--- NOTE | 2017-02-22 14:43 | CP.PCM.PN ---
Subjective - Date & Time of Evaluation Date of Evaluation: 02/22/17 Time of Evaluation: 01:00 - Subjective Subjective: Patient was seen in the ED with Dr. Elias. She was cooperative at first and stated that she last snorted heroin earlier this morning. She states that she came to the hospital for a neck mass that is causing her discomfort. Patient denied IV drug use but stated that she is HIV positive. She does not take any medications outside of what she gets in the hospital, is homeless, and does not follow up with any doctors. Patient did not want to discuss that at this time. Surgery had plans to drain this neck abscess later today or tomorrow. Patient is well known to the ED for coming in requesting pain medications and food. The patient was refusing to change into a hospital gown and was demanding food. A sandwich was brought to her and the patient ripped it up, threw it on the floor and was demanding hot food. It was explained to her that it would be brought to her as soon as possible. Patient stated she did not want to wait and began yelling at the nurses and security in the emergency room. Patient stated that she wanted to leave. Patient was given a script for Bactrim DS and Azithromycin for PCP/MAC prophylaxis. Patient demanded to leave and would not sign AMA form. IV was removed from her arm. Karrie Aguirre PGY 2 Objective - Vital Signs/Intake and Output Vital Signs (last 24 hours): Temp Pulse Resp BP Pulse Ox 98.3 F 62 18 115/75 95 02/22/17 11:00 02/22/17 11:00 02/22/17 11:00 02/22/17 11:00 02/22/17 14:08 - Labs Labs: 02/22/17 09:32 02/22/17 09:32 PT 11.9 SECONDS (9.7-12.2) 02/22/17 09:32 INR 1.1 02/22/17 09:32 APTT 29 SECONDS (21-34) 02/22/17 09:32
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
== END 2017-02-22 14:15 | disposition left against medical advice (07) ==
LOC: C.ER 08:53 → UNDOADMOB 12:42 → C.9E 12:42 → C.ER 14:15
DX: R22.1 Localized swelling, mass and lump, neck (principal); Z59.0 Homelessness
CPT/HCPCS: 70491; 71045; 80053; 80320; 80324; 80345; 80346; 80349; 80353; 80358; 80361; 81001; 83992; 84703; 85025; 85610; 85730; 99282; Q9967

== ENCOUNTER 2017-02-26 18:31 | Inpatient (IN) | payer MEDICAID ==
--- NOTE | 2017-02-26 18:55 | C.PDOC ---
History Of Present Illness 51-year-old female, presents to the emergency department with complaints of an enlarging neck mass in her neck. Patient was in ED last night for same complaint but signed out AMA, she returns today because mass is getting bigger. She notes mild shortness of breath. Denies fevers, dizziness, chest pain, nausea /vomiting, or any other associated symptoms. No other complaints at this time. Time Seen by Provider: 02/26/17 18:45 Chief Complaint (Nursing): Abnormal Skin Integrity History Per: Patient History/Exam Limitations: no limitations Onset/Duration Of Symptoms: Days Current Symptoms Are (Timing): Worse Past Medical History Reviewed: Historical Data, Nursing Documentation, Vital Signs Vital Signs: Last Vital Signs Temp 98.1 F 02/26/17 18:41 Pulse 83 02/26/17 18:41 Resp 20 02/26/17 18:41 BP 118/87 02/26/17 18:41 Pulse Ox 95 02/26/17 19:19 - Medical History PMH: Anxiety, Asthma, Bipolar Disorder, Bronchitis, COPD, CVA (R MCA territory with encephalomalacia), Depression, Emphysema, HIV (from previous chart), Seizures (s/p craniotomy) - [facility] Procedures DETOXIFICATION SERVICES FOR SUBSTANCE ABUSE TREATMENT (02/05/17) DRAINAGE OF POST NECK SUBCU/FASCIA, PERC APPROACH, DIAGN (02/05/17) Family History: States: No Known Family Hx - Social History Hx Tobacco Use: Yes Hx Alcohol Use: No Hx Substance Use: Yes - Immunization History Hx Tetanus Toxoid Vaccination: No Hx Influenza Vaccination: Yes Hx Pneumococcal Vaccination: No Review Of Systems Except As Marked, All Systems Reviewed And Found Negative. Constitutional: Negative for: Fever, Chills Respiratory: Negative for: Shortness of Breath Gastrointestinal: Negative for: Nausea, Vomiting Musculoskeletal: Positive for: Neck Pain Neurological: Negative for: Headache, Dizziness Physical Exam - Physical Exam Appears: Non-toxic, Unkempt, Chronically Ill Skin: Warm, Dry, No Rash Head: Atraumatic, Normacephalic Eye(s): bilateral: Normal Inspection, PERRL, EOMI Nose: Normal Oral Mucosa: Moist Lips: Normal Appearing Throat: No Erythema, No Exudate, Other (Uvula midline. No airway compromise) Neck: Normal ROM, Trachea Midline, Other (Large left sided neck mass. No erythema, warmth, drainage.) Chest: Symmetrical Cardiovascular: Rhythm Regular, No Murmur Respiratory: Normal Breath Sounds, No Accessory Muscle Use, Other (No respiratory distress) Extremity: Normal ROM Neurological/Psych: Oriented x3, Normal Speech ED Course And Treatment Interpretation Of ECG: Notes and records from previous visits were reviewed. Patient seen in ED last night for same complaint and left AMA. O2 Sat by Pulse Oximetry: 95 (on RA) Pulse Ox Interpretation: Normal Medical Decision Making Medical Decision Makin disc w vice president for philanthropy will come see pt Disposition - Disposition Forms: [employer] (Lebanese) - Scribe Statement The provider has reviewed the documentation as recorded by the Scribe (Sylvia Rivas) All medical record entries made by the Scribe were at my direction and personally dictated by me. I have reviewed the chart and agree that the record accurately reflects my personal performance of the history, physical exam, medical decision making, and the department course for this patient. I have also personally directed, reviewed, and agree with the discharge instructions and disposition.
[2017-02-26] MEDS ORDERED: Lidocaine 1% Inj (20ml) IV ONE (19:35)
[2017-02-26] MEDS ORDERED: Piperacill/Tazo 3.375gm in Dex 3.375 GM/50 ML BAG IVPB STA (19:52)
[2017-02-26] MEDS ORDERED: Vancomycin 500 mg Inj IVPB STA (19:52)
[2017-02-26] MEDS ORDERED: Vancomycin 1 gm/NS 200 ml 1 GM/200 ML BAG IVPB ONE (20:00)
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
[2017-02-26 20:23] LABS: BASO % 0.4 % (0.0-2.0); EOS % 0.4 % (0.0-4.0); HEMOGLOBIN 12.4 g/dL (11.0-16.0); LYMPH # 0.9 K/uL (1.0-4.3); LYMPH % 17.5 % (20.0-40.0); MEAN CELL VOLUME 84.5 fL (81.0-99.0); MEAN CORPUSCULAR HEMOGLOBIN 27.3 pg (27.0-31.0); MEAN CORPUSCULAR HGB CONC 32.3 g/dL (33.0-37.0); MONO # 0.4 K/uL (0.0-0.8); MONO % 7.2 % (0.0-10.0); NEUT # 3.7 K/uL (1.8-7.0); NEUT % 74.5 % (50.0-75.0); NRBC % 0.1 % (0.0-2.0); RBC 4.55 Mil/uL (3.80-5.20); RED CELL DISTRIBUTION WIDTH 15.5 % (11.5-14.5); WHITE BLOOD COUNT 4.9 K/uL (4.8-10.8)
--- NOTE | 2017-02-26 20:26 | PCM.SURG1 ---
Surgeon's Initial Post Op Note - Surgeon's Notes Surgeon: Dr Liang (Dr Rodriguez) Arborist: none Type of Anesthesia: Local Pre-Operative Diagnosis: left neck abscess Operative Findings: straw colored cloudy fluid Post-Operative Diagnosis: as above Operation Performed: aspiration of left neck mass Specimen/Specimens Removed: 100 cc fluid - sent for culture and gram stain Estimated Blood Loss: EBL {In ML}: 1 Blood Products Given: N/A Drains Used: No Drains Post-Op Condition: Good Date of Surgery/Procedure: 02/26/17 Time of Surgery/Procedure: 20:26
[2017-02-26 20:49] LABS: BLOOD UREA NITROGEN 17 mg/dL (7-17); GFR AFRICAN-AMERICAN > 60; GFR NON-AFRICAN AMERICAN > 60
[2017-02-26 20:50] LABS: ALB/GLOB RATIO 0.8 (1.0-2.1); ALBUMIN 3.5 g/dL (3.5-5.0); ALT/SGPT 19 U/L (9-52); AST/SGOT 21 U/L (14-36); CALCIUM 8.2 mg/dl (8.6-10.4)
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
[2017-02-26] MEDS ORDERED: Acetylcysteine 20% Inhal Soln (4ml) INH STA (21:46)
[2017-02-26] MEDS ORDERED: Vancomycin 1 gm/NS 200 ml 1 GM/200 ML BAG IVPB SCH (22:00)
[2017-02-27] MEDS ORDERED: Albuterol-Ipratrop 3 mg / 0.5 (3 ml) UD INH SCH (02:00)
[2017-02-27] MEDS ORDERED: Piperacillin/Tazobact 3.375 GM in Sodium Chloride 100 ML IVPB SCH (02:00)
[2017-02-27] MEDS ORDERED: Albuterol-Ipratrop 3 mg / 0.5 (3 ml) UD ONE (03:00)
[2017-02-27 03:18] LABS: SQUAMOUS EPITHIAL 4 /hpf (0-5); URINE BILIRUBIN NEGATIVE (NEGATIVE); URINE BLOOD NEGATIVE (NEGATIVE); URINE CLARITY Clear (Clear); URINE COLOR Amber (YELLOW); URINE GLUCOSE (UA) NORMAL (Normal); URINE LEUKOCYTE ESTERASE NEG Leu/uL (Negative); URINE NITRATE NEGATIVE (NEGATIVE); URINE PROTEIN 1+ mg/dL (NEGATIVE)
[2017-02-27] MEDS: Piperacill/Tazo 3.375gm in Dex 3.375 GM/50 ML BAG IVPB SCH ×2 (03:51→11:26)
[2017-02-27 03:55] LABS: BASO % 0.6 % (0.0-2.0); EOS % 1.3 % (0.0-4.0); HEMOGLOBIN 11.6 g/dL (11.0-16.0); LYMPH # 0.8 K/uL (1.0-4.3); LYMPH % 27.6 % (20.0-40.0); MEAN CELL VOLUME 84.2 fL (81.0-99.0); MEAN CORPUSCULAR HEMOGLOBIN 27.6 pg (27.0-31.0); MEAN CORPUSCULAR HGB CONC 32.8 g/dL (33.0-37.0); MEAN PLATELET VOLUME 7.5 fL (7.2-11.7); MONO # 0.3 K/uL (0.0-0.8); MONO % 11.3 % (0.0-10.0); NEUT # 1.6 K/uL (1.8-7.0); NEUT % 59.2 % (50.0-75.0); RBC 4.2 Mil/uL (3.80-5.20); RED CELL DISTRIBUTION WIDTH 15.2 % (11.5-14.5); WHITE BLOOD COUNT 2.8 K/uL (4.8-10.8)
[2017-02-27 04:12] LABS: ALB/GLOB RATIO 0.8 (1.0-2.1); ALBUMIN 2.9 g/dL (3.5-5.0); ALT/SGPT 16 U/L (9-52); AST/SGOT 16 U/L (14-36); BLOOD UREA NITROGEN 24 mg/dL (7-17); CALCIUM 7.9 mg/dl (8.6-10.4); GFR AFRICAN-AMERICAN > 60; GFR NON-AFRICAN AMERICAN 53; MAGNESIUM 1.7 mg/dL (1.6-2.3)
[2017-02-27 04:43] LABS: HEPATITIS B SURFACE AG NEGATIVE (NEGATIVE)
[2017-02-27 04:49] LABS: HEPATITIS A IGM NEGATIVE (NEGATIVE); HEPATITIS B CORE AB Negative (NEGATIVE)
[2017-02-27 06:49] VITALS: RESP 20
[2017-02-27 08:26] VITALS: BP 126/59; PULSE 63; TEMP 97.9; O2SAT 95
--- NOTE | 2017-02-27 08:26 | CP.PCM.PN ---
Subjective - Date & Time of Evaluation Date of Evaluation: 02/27/17 Time of Evaluation: 06:45 - Subjective Subjective: General Surgery Note for Dr. Rodriguez Patient seen and examined at bedside. No acute event overnight. Patient requesting that her neck mass be drained again. Patient also threatening AMA. Patient is uncooperative. She is very demanding. Objective - Vital Signs/Intake and Output Vital Signs (last 24 hours): Temp Pulse Resp BP Pulse Ox 97.9 F 63 20 126/59 L 95 02/27/17 07:45 02/27/17 07:45 02/27/17 07:45 02/27/17 07:45 02/27/17 07:45 - Medications Medications: Current Medications Albuterol/Ipratropium (Duoneb 3 Mg/0.5 Mg (3 Ml) Ud) 3 ml INH RQ6 [facility] Last Admin: 02/27/17 03:08 Dose: 3 ml Enoxaparin Sodium (Lovenox) 40 mg SC DAILY [facility] Piperacillin Sod/Tazobactam Sod (Zosyn 3.375 Gm Iv Premix) 3.375 gm in 50 mls @ 100 mls/hr IVPB Q6H [facility] Last Admin: 02/27/17 03:51 Dose: 100 mls/hr Vancomycin/Sodium Chloride (Vancomycin 1 Gm/Ns 200 Ml) 1 gm in 200 mls @ 166.7 mls/hr IVPB Q12H [facility] Stop: 03/04/17 10:01 Ibuprofen (Motrin Tab) 600 mg PO Q8H PRN PRN Reason: Pain, Mild (1-3) Ketorolac Tromethamine (Toradol) 10 mg IVP Q6 PRN PRN Reason: Pain, moderate (4-7) Lorazepam (Ativan) 1 mg IVP Q6H PRN PRN Reason: Seizure activity Last Admin: 02/26/17 22:19 Dose: 1 mg Ondansetron HCl (Zofran Inj) 4 mg IVP Q6 PRN PRN Reason: Nausea/Vomiting Pantoprazole Sodium (Protonix Ec Tab) 40 mg PO DAILY [facility] Phenytoin Sodium (Dilantin) 100 mg PO TID [facility] Saccharomyces Boulardii (Florastor) 250 mg PO BID [facility] Tramadol HCl (Ultram) 50 mg PO Q4 PRN PRN Reason: Pain, moderate (4-7) - Labs Labs: 02/27/17 03:51 02/27/17 03:51 - Constitutional Appears: No Acute Distress - Eye Exam Eye Exam: Normal appearance - Neck Exam Additional comments: Large left neck mass - Respiratory Exam Respiratory Exam: NORMAL BREATHING PATTERN - Cardiovascular Exam Cardiovascular Exam: REGULAR RHYTHM - GI/Abdominal Exam GI & Abdominal Exam: Soft. absent: Distended, Tenderness - Extremities Exam Extremities Exam: Normal Capillary Refill - Neurological Exam Neurological Exam: Alert, Awake, Oriented x3 - Psychiatric Exam Psychiatric exam: Agitated - Skin Skin Exam: Dry, Intact, Normal Color, Warm Assessment and Plan - Assessment and Plan (Free Text) Plan: 51F with large cystic mass on left neck -Continue IV antibiotics -F/u wound culture -ENT consult -ID consult for evaluation of HIV and initiation of treatment -Discussed with Dr. Jennifer Portillo PGY1
[2017-02-27] MEDS: Saccharomyces Boulardi 250 mg Cap PO SCH ×2 (08:52→09:03)
[2017-02-27 08:55] LABS: HEPATITIS C ANTIBODY REACTIVE (NEGATIVE)
--- NOTE | 2017-02-27 08:56 | CP.PCM.PN ---
<Mayra Mc BenAnn - Last Filed: 02/27/17 11:15> Subjective - Date & Time of Evaluation Date of Evaluation: 02/27/17 Time of Evaluation: 07:00 - Subjective Subjective: Medicine Progress Note: Patient was seen and evaluated at bedside. Per nurse patient threw her food tray this morning. Patient states she has nausea, vomiting and chills. She states she is going through withdrawal symptoms. She denies diarrhea. She also states she has chronic trouble breathing. She denies injecting heroin. She states the last time she used heroin and cocaine was yesterday. She states she has been living on [address] currently. Objective - Vital Signs/Intake and Output Vital Signs (last 24 hours): Temp Pulse Resp BP Pulse Ox 97.9 F 63 20 126/59 L 95 02/27/17 07:45 02/27/17 07:45 02/27/17 07:45 02/27/17 07:45 02/27/17 07:45 - Medications Medications: Current Medications Albuterol/Ipratropium (Duoneb 3 Mg/0.5 Mg (3 Ml) Ud) 3 ml INH RQ6 [facility] Last Admin: 02/27/17 03:08 Dose: 3 ml Enoxaparin Sodium (Lovenox) 40 mg SC DAILY [facility] Piperacillin Sod/Tazobactam Sod (Zosyn 3.375 Gm Iv Premix) 3.375 gm in 50 mls @ 100 mls/hr IVPB Q6H [facility] Last Admin: 02/27/17 03:51 Dose: 100 mls/hr Vancomycin/Sodium Chloride (Vancomycin 1 Gm/Ns 200 Ml) 1 gm in 200 mls @ 166.7 mls/hr IVPB Q12H [facility] Stop: 03/04/17 10:01 Ibuprofen (Motrin Tab) 600 mg PO Q8H PRN PRN Reason: Pain, Mild (1-3) Lorazepam (Ativan) 1 mg IVP Q6H PRN PRN Reason: Seizure activity Last Admin: 02/26/17 22:19 Dose: 1 mg Ondansetron HCl (Zofran Inj) 4 mg IVP Q6 PRN PRN Reason: Nausea/Vomiting Pantoprazole Sodium (Protonix Ec Tab) 40 mg PO DAILY [facility] Phenytoin Sodium (Dilantin) 100 mg PO TID [facility] Saccharomyces Boulardii (Florastor) 250 mg PO BID [facility] Last Admin: 02/27/17 08:52 Dose: 250 mg Tramadol HCl (Ultram) 50 mg PO Q4 PRN PRN Reason: Pain, moderate (4-7) Trimethoprim/Sulfamethoxazole (Bactrim Ds Tab) 1 tab PO Q12H [facility] - Labs Labs: 02/27/17 03:51 02/27/17 03:51 - Constitutional Appears: In Acute Distress, Cachectic - Eye Exam Eye Exam: EOMI, Normal appearance - ENT Exam ENT Exam: Mucous Membranes Dry - Respiratory Exam Respiratory Exam: Rales, Wheezes - Cardiovascular Exam Cardiovascular Exam: REGULAR RHYTHM, +S1, +S2 - GI/Abdominal Exam GI & Abdominal Exam: Soft, Normal Bowel Sounds. absent: Tenderness - Extremities Exam Extremities Exam: Normal Inspection - Neurological Exam Neurological Exam: Alert, Awake, Oriented x3 - Psychiatric Exam Psychiatric exam: Normal Affect, Normal Mood - Skin Skin Exam: Dry, Intact, Normal Color, Warm Additional comments: cellulitis on the left neck Assessment and Plan - Assessment and Plan (Free Text) Assessment: 51 yo Female with PMHx of HIV/AIDS untreated, Hx of Brain Abscess ( 1999), Seizure Disorder, COPD, Asthma, Cocaine and Heroine Use, Tobacco Use presents to the ED with a left neck mass x 1 week. 1.) Left Neck Abscess - General Surgery consulted- Dr. Rodriguez- help appreciated * Abscess drained 100cc removed, sample sent for culture - F/U wound culture - Medications: * Zosyn Q8 * Vanco QD startedon 02/26 * f/u vanco trough before the 4th dose * Florastor 250mg PO BID * Motrin PRN, Toradol PRN 2.) HIV/ AIDS Untreated - ID consulted- Dr. Bryan- help appreciated - Patient continues to refuse treatment she states she has fear of people knowing her HIV status. She states she knows she is going to soon - Pallitive Care Consult: Melissa --> help appreciated - Past labs: CD4 144, CD8 461 (April 2016) - f/u HIV RNA, CD4 count - f/u RPR 3.) History of Hepatitis C - Hepatitis C + - Patient states she has had hepatitis C for many years 4.) History of COPD -Images * f/u Chest CT * Chest Xray (02/26/17): No significant interval change. * CXR 02/22/17: Diminutive left lung field. Prominent interstitial markings. Left apical nodular pleural thickening. Medial right lower lobe patchy opacity ; correlate clinically for atelectasis or pneumonia. Left lower lobe pleural thickening/ effusion and/or consolidation. No definite pneumothorax. - Medications: * Duonebs Q6H [facility] * Bactrim DS 1 tab PO q12h - f/u sputum culture - f/u mycoplasm, strep pneumo, legionella 5.) History of Asthma - Chest Xray (02/26/17): No significant interval change. - CXR 02/22/17: Diminutive left lung field. Prominent interstitial markings. Left apical nodular pleural thickening. Medial right lower lobe patchy opacity ; correlate clinically for atelectasis or pneumonia. Left lower lobe pleural thickening/ effusion and/or consolidation. No definite pneumothorax. - Medications * Duonebs Q6H [facility] 6.) History of Brain Abscess (1999) 7.) Seizure Disorder - Dilantin 100mg PO TID, Ativan 1mg IVP Q6H PRN for seizure activity - Dilantin level: <3.0 8.) History of Drug Use - Smokes Cocaine and Heroine Use (per patient she snorts does not inject) - Psych Consult: Dr. Thrasher --> help appreciated - + UDS (02/22/17) - Medications * Methadone 30mg once * Ativan 1mg q6h PRN 9.) History of Tobacco Use Disorder - Smoking Cessation encouraged - Patient refused Nicotine Patch on admission Prophylatic Measures - GI PPX: Protonix 40 mg PO daily - DVT PPX: SCDs, Lovenox 40mg SC daily Case discussed with Dr. Alexia Mc PGY-1 <Cuba Hale - Last Filed: 02/27/17 16:27> Objective - Vital Signs/Intake and Output Vital Signs (last 24 hours): Temp Pulse Resp BP Pulse Ox 97.9 F 63 20 126/59 L 95 02/27/17 07:45 02/27/17 07:45 02/27/17 07:45 02/27/17 07:45 02/27/17 07:45 - Labs Labs: 02/27/17 03:51 02/27/17 03:51 Attending/Attestation - Attestation I have personally seen and examined this patient.: Yes I have fully participated in the care of the patient.: Yes I have reviewed all pertinent clinical information, including history, physical exam and plan: Yes
--- NOTE | 2017-02-27 08:57 | RAD ---
Chest x-ray single frontal view History: Productive cough. Comparison: 02/22/2017 Findings: Moderate loculated left pleural effusion. Confluent consolidative changes noted at the right lung base. Pleural thickening and/or reticular density seen along the lateral aspect of the left upper to mid lung zone. Surgical clips project within left nubia thorax and heart. Impression: No significant interval change.
[2017-02-27] MEDS: Enoxaparin 40 mg Syringe SC SCH ×2 (09:16→09:17)
[2017-02-27] MEDS ORDERED: Tmp-Smz 800 mg-160 mg DS Tab PO SCH ×2 (10:00→11:00)
[2017-02-27] MEDS ORDERED: Vancomycin 1 gm/NS 200 ml 1 GM/200 ML BAG IVPB SCH ×2 (10:00→22:00)
[2017-02-27] MEDS ORDERED: Pantoprazole 40 mg EC Tab PO SCH (10:00)
[2017-02-27] MEDS ORDERED: Sodium Chloride 0.9% 1,000 ML IV SCH (11:00)
--- NOTE | 2017-02-27 11:27 | PCM.PSYCH ---
Initial Psychiatric Evaluation - Initial Psychiatric Evaluation Type of Admission: Voluntary Legal Status: Capacity Chief Complaint (in patient's own words): "I am having withdrawal" History of Present Illness and Precipitating Events: Psych Consult: Heroin withdrawal The pt is seen, chart reviewed, case discussed with staff Patient is a 51 year old female who is currently experiencing opioid withdrawal. She is single, homeless, and unemployed. She has a "long time" history of heroin use. She states she uses 10 bags of heroin daily, intranasal. Her last time using was yesterday morning. Currently she is experiencing withdrawal symptoms of diarrhea, cramping, yawning, nausea, and runny nose. She also states using cocaine on occasion, smokes. She states she smokes over a pack of cigarettes daily. She denies any prior detox or rehab and refused to consider them. She currently has no legal issues. Her plan following discharge is to get back on the streets and begin using again. Patient states she currently feels depressed and anxious about her life. She states she doesn't want help. She has a history of AIDS and states she wishes for the disease to just kill her. She denies any prior suicide attempts or thoughts about hurting herself or others. PMH: Hep C, AIDS, Seizures Past Psych Hx: Unattainable Family Psych Hx: Unattainable Current Medications: Active Medications Generic Name Dose Route Start Last Admin Trade Name Freq PRN Reason Stop Dose Admin Albuterol/Ipratropium 3 ml 02/27/17 02:00 02/27/17 03:08 Duoneb 3 Mg/0.5 Mg (3 Ml) Ud INH 3 ml RQ6 [facility] Administration Enoxaparin Sodium 40 mg 02/27/17 10:02/27/17 09:17 Lovenox SC Not Given DAILY [facility] Piperacillin Sod/Tazobactam Sod 3.375 gm in 50 mls @ 100 mls/hr 02/27/17 04: 00 02/27/17 11:26 Zosyn 3.375 Gm Iv Premix IVPB 100 mls/hr Q6H [facility] Administration Vancomycin/Sodium Chloride 1 gm in 200 mls @ 166.7 mls/hr 02/27/17 10:00 11:27 Vancomycin 1 Gm/Ns 200 Ml IVPB 03/04/17 10:01 166.7 mls/hr Q12H [facility] Administration Sodium Chloride 1,000 mls @ 50 mls/hr 02/27/17 11:00 Sodium Chloride 0.9% IV .Q20H [facility] Ibuprofen 600 mg 02/26/17 21:11 Motrin Tab PO Q8H PRN Pain, Mild (1-3) Lorazepam 1 mg 02/26/17 21:48 02/26/17 22:19 Ativan IVP 1 mg Q6H PRN Administration Seizure activity Ondansetron HCl 4 mg 02/26/17 21:07 Zofran Inj IVP Q6 PRN Nausea/Vomiting Pantoprazole Sodium 40 mg 02/27/17 10:00 02/27/17 09:16 Protonix Ec Tab PO 40 mg DAILY [facility] Administration Phenytoin Sodium 100 mg 02/27/17 10:00 02/27/17 09:16 Dilantin PO 100 mg TID [facility] Administration Saccharomyces Boulardii 250 mg 02/27/17 08:00 02/27/17 09:03 Florastor PO Not Given BID [facility] Tramadol HCl 50 mg 02/26/17 23:53 02/27/17 09:01 Ultram PO 50 mg Q4 PRN Administration Pain, moderate (4-7) Trimethoprim/Sulfamethoxazole 1 tab 02/27/17 11:00 02/27/17 11:24 Bactrim Ds Tab PO 1 tab Q12H [facility] Administration Past Psychiatric History - Past Psychiatric History Previous Treatment History: Inpatient Pertinent Medical Hx (Current Medical&Sleep Prob, Allergies): Allergies Allergy/AdvReac Type Severity Reaction Status Date / Time No Known Allergies Allergy Verified 02/26/17 18:40 Albuterol HFA [Ventolin HFA 90 mcg/actuation (8 g)] 2 puff IH [id number] PRN Phenytoin, Extended [Dilantin Kapseals] 100 mg PO TID 02/22/17 Review of Systems - Review of Systems All systems: reviewed and no additional remarkable complaints except - Psychiatric Psychiatric: Anxiety, Depression, Difficulty Concentrating, Hopelessness. absent: Hallucinations, Homicidal Ideation, Paranoia, Suicidal Ideation Mental Status Examination - Personal Presentation Personal Presentation: Looks older than stated age - Affect Affect: Constricted, Depressed - Motor Activity Motor Activity: Calm - Reliability in Providing Information Reliability in Providing Information: Good - Speech Speech: Disorganized - Mood Mood: Depressed, Anxious - Formal Thought Process Formal Thought Process: No Impairment - Obsessions/Compulsions Obsessions: No Compulsions: No - Cognitive Functions Orientation: Person, Place, Situation, Time Sensorium: Alert Attention/Concentration: Easily distracted Abstract Thinking: Duff Estimate of Intelligence: Below average - Risk Risk: Withdrawal, Diminished functioning - Limitations Limitations: Living alone DSM 5 DX - DSM 5 DSM 5 Diagnosis: Opioid Use disorder-severe Opioid withdrawal Major depressive disorder recurrent moderate General Anxiety disorder-chronic - Recommended/Plan of Treatment Treatment Recommendations and Plan of Treatment: Spoke with patient and encouraged her to stay. She knew her illnesses and consequences of no treatment. She was not homicidal, suicidal and she was not disoriented or agitated. Cleared by psych Methadone taper
[2017-02-27] MEDS ORDERED: Aluminum Hydroxide/Magnesium Hydroxide Susp (30 mL) PO PRN (11:41)
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
[2017-02-28 18:17] LABS: % CD4 (T HELPER CELL) 29 Percent (30-61); % CD8 (SUPPRESSOR T CELL) 51 Percent (12-42); ABSOLUTE CD4 CELLS 224 Cells/mcL (490-1740); ABSOLUTE CD8 CELLS 395 Cells/mcL (180-1170); ABSOLUTE LYMPHOCYTES 772 Cells/mcL (850-3900); HELPER/SUPPRESSOR RATIO 0.57 Ratio (0.86-5.00)
== END 2017-02-27 13:30 | disposition left against medical advice (07) | DRG 713 ==
LOC: C.ER 18:31 → C.9E 21:02 → C.5S 02-27 06:16
PROVIDERS: ADMIT Hospitalist; ATTEND Hospitalist
DX: L02.11 Cutaneous abscess of neck (principal); B20 Human immunodeficiency virus [HIV] disease; J43.9 Emphysema, unspecified; F11.23 Opioid dependence with withdrawal; E11.9 Type 2 diabetes mellitus without complications; F17.210 Nicotine dependence, cigarettes, uncomplicated; F31.9 Bipolar disorder, unspecified; F41.1 Generalized anxiety disorder; G40.909 Epilepsy, unspecified, not intractable, without status epilepticus; I10 Essential (primary) hypertension; Z59.0 Homelessness; Z66 Do not resuscitate; Z68.20 Body mass index [BMI] 20.0-20.9, adult

== ENCOUNTER 2017-03-02 19:25 | Emergency (ER) | payer MEDICAID ==
[2017-03-02 20:19] VITALS: TEMP 98.1
--- NOTE | 2017-03-02 20:29 | C.PDOC ---
History Of Present Illness patient presents with enlarging left neck mass. She just signed out ama a few days ago.Refused treatment for either her hiv, copd and seizure disorder. Now states that she cannot sleep on her left side and that the neck mass has increased in size. No f/c/n/v Pt also uses heroin and cocaine daily Time Seen by Provider: 03/02/17 20:29 Chief Complaint (Nursing): ENT Problem History Per: Patient History/Exam Limitations: None Onset/Duration Of Symptoms: Days Current Symptoms Are (Timing): Worse Quality (Mouth/Throat): Tenderness, Swelling, Other (increasing left neck mass) Severity: Moderate Pain Scale Rating Of: 5 Anticoagulant/Antiplatlet Use?: No Recent Aspirin Use: No Past Medical History Reviewed: Historical Data, Nursing Documentation, Vital Signs Vital Signs: Last Vital Signs Temp 98.1 F 03/02/17 20:18 Pulse 50 L 03/02/17 21:13 Resp 13 03/02/17 21:13 BP 111/61 03/02/17 21:13 Pulse Ox 100 03/02/17 21:13 - Medical History PMH: Anxiety, Asthma, Bipolar Disorder, Bronchitis, COPD, CVA (R MCA territory with encephalomalacia), Depression, Emphysema, HIV (from previous chart), Seizures (s/p craniotomy) Denies: Diabetes, Hepatitis, HTN, Chronic Kidney Disease, Sexually Transmitted Disease - [facility] Procedures DETOXIFICATION SERVICES FOR SUBSTANCE ABUSE TREATMENT (02/05/17) DRAINAGE OF POST NECK SUBCU/FASCIA, PERC APPROACH, DIAGN (02/05/17) Family History: States: No Known Family Hx - Social History Hx Tobacco Use: Yes Hx Alcohol Use: No Hx Substance Use: Yes - Immunization History Hx Tetanus Toxoid Vaccination: No Hx Influenza Vaccination: Yes Hx Pneumococcal Vaccination: No Review Of Systems Constitutional: Negative for: Fever, Chills Eyes: Negative for: Redness ENT: Positive for: Other (left neck mass, ) Cardiovascular: Negative for: Chest Pain Respiratory: Negative for: Shortness of Breath Gastrointestinal: Negative for: Nausea, Vomiting, Abdominal Pain Genitourinary: Negative for: Dysuria Musculoskeletal: Negative for: Neck Pain Skin: Negative for: Rash Neurological: Negative for: Weakness Psych: Positive for: Anxiety Physical Exam - Physical Exam Appears: Non-toxic Skin: Warm, Dry Head: Normacephalic Eye(s): bilateral: Normal Inspection Oral Mucosa: Moist Throat: No Erythema, No Exudate Neck: Trachea Midline, Other (large 6x10 cm indurated mass, increased in size from previous, no erythema) Lymphatic: No Axilla Node Tenderness Chest: Symmetrical Cardiovascular: Rhythm Regular Respiratory: No Rales, No Rhonchi, No Wheezing Gastrointestinal/Abdominal: Soft, No Tenderness Back: No CVA Tenderness Extremity: Normal ROM Extremity: Bilateral: Atraumatic Pulses: Left Dorsalis Pedis: Normal, Right Dorsalis Pedis: Normal Neurological/Psych: Oriented x3 Gait: Steady ED Course And Treatment - Laboratory Results Result Diagrams: 03/02/17 21:01 03/02/17 21:01 O2 Sat by Pulse Oximetry: [address].: Bryant Denny Comment: accepted the pt on his service and took over the care at 12:28 AM Doctor Will See Patient In The: Hospital Counseled Patient/Family Regarding: Studies Performed, Diagnosis - Disposition Referrals: Clinic,Med Surg [Primary Care Provider] - Disposition: HOSPITALIZED Disposition Time: 20:29 Condition: FAIR Forms: [employer] (Arabic) - Clinical Impression Clinical Impression: Heroin abuse, HIV (human immunodeficiency virus infection), COPD exacerbation, Drug abuse, Neck mass Decision To Admit - Pt Status Changed To: Hospital Disposition Of: Inpatient - Admit Certification Admit to Inpatient:: After my assessment, the patient will require hospitalization for at least two midnights. This is because of the severity of symptoms shown, intensity of services needed, and/or the medical risk in this patient being treated as an outpatient. - InPatient: Physician Admission Certification: I certify that this patient requires 2 or more midnights of care for the following reason:: After my assessment, the patient will require hospitalization for at least two midnights. This is because of the severity of symptoms shown, intensity of services needed, and/or the medical risk in this patient being treated as an outpatient. - . Bed Request Type: Regular Admitting Physician: Bryant Denny Patient Diagnosis: Heroin abuse, HIV (human immunodeficiency virus infection), COPD exacerbation, Drug abuse, Neck mass
[2017-03-02] MEDS ORDERED: Sodium Chloride 0.9% 1,000 ML IV ONE (20:40)
[2017-03-02] MEDS ORDERED: Piperacillin/Tazobact 3.375 GM in Sodium Chloride 100 ML IVPB STA (20:40)
[2017-03-02 21:08] LABS: VENOUS BLOOD GAS BASE EXCESS 3.6 mmol/L (0.0-2.0); VENOUS BLOOD GAS PCO2 67 mmHg (40-60); VENOUS BLOOD GAS PO2 14 mm/Hg (30-55); VENOUS BLOOD PH 7.29 (7.32-7.43)
[2017-03-02] MEDS ORDERED: Morphine 4 MG/ML VIAL ONE (21:08)
[2017-03-02] MEDS ORDERED: Sodium Chloride 0.9% 1,000 ML ONE (21:08)
[2017-03-02] MEDS ORDERED: Piperacill/Tazo 3.375gm in Dex 3.375 GM/50 ML BAG IVPB STA (21:09)
[2017-03-02 21:10] LABS: BASO # 0.1 K/uL (0.0-0.2); BASO % 1.3 % (0.0-2.0); EOS # 0.1 K/uL (0.0-0.7); EOS % 1.1 % (0.0-4.0); HEMOGLOBIN 13.4 g/dL (11.0-16.0); LYMPH # 0.9 K/uL (1.0-4.3); MEAN CORPUSCULAR HEMOGLOBIN 28.4 pg (27.0-31.0); MEAN CORPUSCULAR HGB CONC 33.8 g/dL (33.0-37.0); MEAN PLATELET VOLUME 7.5 fL (7.2-11.7); MONO # 0.3 K/uL (0.0-0.8); MONO % 6.9 % (0.0-10.0); NEUT # 3.4 K/uL (1.8-7.0); NEUT % 71.7 % (50.0-75.0); RBC 4.72 Mil/uL (3.80-5.20); RED CELL DISTRIBUTION WIDTH 14.9 % (11.5-14.5); WHITE BLOOD COUNT 4.7 K/uL (4.8-10.8)
[2017-03-02] MEDS ORDERED: Vancomycin 1 gm/NS 200 ml 1 GM/200 ML BAG IVPB STA (21:10)
[2017-03-02 21:21] LABS: PROTHROMBIN TIME 10.8 SECONDS (9.7-12.2)
[2017-03-02 21:25] LABS: ALB/GLOB RATIO 0.8 (1.0-2.1); ALBUMIN 3.7 g/dL (3.5-5.0); ALT/SGPT 19 U/L (9-52); AST/SGOT 27 U/L (14-36); BLOOD UREA NITROGEN 23 mg/dL (7-17); CALCIUM 9.1 mg/dl (8.6-10.4); GFR AFRICAN-AMERICAN > 60; GFR NON-AFRICAN AMERICAN > 60
[2017-03-02] MEDS ORDERED: Iodixanol 320 mg/ml 150 ml Bottle IV ONE (21:38)
--- NOTE | 2017-03-03 00:03 | CT ---
EXAM: CT Chest With Intravenous Contrast CLINICAL HISTORY: 51 years old, female; Signs and symptoms; Mass, lump, or swelling; Mass, lump, or swelling in the chest; Additional info: Left neck mass, hiv+ TECHNIQUE: Axial computed tomography images of the chest with intravenous contrast. All CT scans at this facility use one or more dose reduction techniques, viz.: automated exposure control; ma/kV adjustment per patient size (including targeted exams where dose is matched to indication; i.e. head); or iterative reconstruction technique. Coronal and sagittal reformatted images were created and reviewed. CONTRAST: 100 mL of visipaque 320 administered intravenously. COMPARISON: Prior images are not available for review. FINDINGS: Artifacts: Motion artifact degrades image quality.Streak artifact degrades image quality. Lungs and pleural spaces: Right lung is hyperinflated. There is no focal consolidation. There are postsurgical changes in the left hemithorax with volume loss. There is elevation of the left diaphragm. There is bullous change in the left upper lung zone. There is atelectasis and scarring with bronchiectasis at the left base. There may be a small left effusion. Heart and vasculature: There is shift of heart and mediastinal structures to the left. Heart size is normal. There is no pericardial effusion. Aorta is normal in caliber. Main pulmonary artery is mildly dilated. Streak and motion limit evaluation of peripheral pulmonary arteries. Mediastinum:Trachea and main bronchi are patent. Left upper lobe bronchus is not identified and may be surgically absent. Esophagus is partially distended with air. There is a small hiatal hernia. Thyroid: Thyroid is not optimally demonstrated. Bones/joints: There are no acute osseous abnormalities. Soft tissues: unremarkable Lymph nodes: There are no pathologically enlarged mediastinal nodes. Left hilum is not optimally evaluated. Upper abdomen: Refer to following report for abdominal findings IMPRESSION: Postsurgical changes in the left hemithorax with volume loss and chronic change at the left base; shift of cardiomediastinal structures to the left; hyperinflation of the right lung; Additional nonemergent findings as described above. EXAM: CT Abdomen and Pelvis With Intravenous Contrast EXAM DATE/TIME: 03/02/2017 8:40 PM CLINICAL HISTORY: 51 years old, female; Signs and symptoms; Mass, lump, or swelling; Mass, lump, or swelling in the chest; Additional info: Left neck mass, hiv+ TECHNIQUE: Axial computed tomography images of the abdomen and pelvis with intravenous contrast. All CT scans at this facility use one or more dose reduction techniques, viz.: automated exposure control; ma/kV adjustment per patient size (including targeted exams where dose is matched to indication; i.e. head); or iterative reconstruction technique. Coronal and sagittal reformatted images were created and reviewed. CONTRAST: 100 mL of visipaque 320 administered intravenously. COMPARISON: CR - CHEST ONE VIEW 2015-06-04 20:45 FINDINGS: Artifacts: Streak artifact degrades image quality. [employer] artifact degrades image quality. Lower thorax: Refer to prior report for chest findings ABDOMEN: Liver: Liver appears mildly enlarged with prominence of left and caudate lobes. Gallbladder and bile ducts: Gallbladder is partially distended.There is prominence of the common duct. Pancreas: Pancreas is atrophic. Spleen: unremarkable Adrenals: Motion limits evaluation of the adrenals. Kidneys and ureters: Allowing for motion, no focal abnormality is seen in left kidney. Right kidney is unremarkable.There is no pelvocaliectasis or ureterectasis. Stomach and bowel: Stomach is partially distended. Rotation is normal. There is no small bowel obstruction. Cecum is low in the pelvis. Ileocecal region is poorly visualized. Terminal ileum and appendix are not identified. As There is moderately large amount stool in the colon. Appendix: See stomach and bowel PELVIS: Bladder: Bladder is almost empty. Reproductive: Uterus and adnexal structures are not well demonstrated. ABDOMEN and PELVIS: Intraperitoneal space: There is no free air. Bones/joints: There are degenerative changes in the osseus structures. Soft tissues: There is body wall edema. There is a very small fat containing umbilical hernia. Vasculature: There is no significant fluid.There are multiple phleboliths. There are vascular calcifications. Lymph nodes: There are mildly enlarged paraortic nodes. IMPRESSION: Limited evaluation of the abdomen and pelvis due to patient motion and paucity of body fat; no acute solid visceral abnormality, no bowel obstruction
--- NOTE | 2017-03-03 00:21 | CT ---
EXAM: CT Neck With Intravenous Contrast EXAM DATE/TIME: 03/02/2017 8:40 PM CLINICAL HISTORY: 51 years old, female; Signs and symptoms; Mass, lump, or swelling in neck; Additional info: Left neck mass TECHNIQUE: Axial computed tomography images of the neck with intravenous contrast. All CT scans at this facility use one or more dose reduction techniques, viz.: automated exposure control; ma/kV adjustment per patient size (including targeted exams where dose is matched to indication; i.e. head); or iterative reconstruction technique. Coronal and sagittal reformatted images were created and reviewed. CONTRAST: 100 mL of VISIPAQUE 320 administered intravenously. COMPARISON: CT neck 02/22/17 FINDINGS: Brain: No acute abnormalities are seen in visualized portion of the brain. There is a remote right temporal craniotomy. There is right temporal encephalomalacia. Sinuses: There is no acute sinusitis. Ears and mastoids: Middle ears and mastoids are unremarkable Orbits: Orbital contents are unremarkable. Tonsils and adenoids: Tonsils and adenoids are unremarkable. Deep facial spaces: Parapharyngeal spaces are symmetric. Large left posterior triangle mass measures approximately 8.8 x 4.8 x 6.3 cm. Allowing for differences in positioning and technique, mass appears similar in size compared to the prior study. There continues to be peripheral enhancement. The central portions is fluid density. There is inflammation and edema and overlying superficial soft tissues. Salivary glands: Left parotid and submandibular glands are unremarkable. There is mild reactive hyperemia in the left parotid gland. There is continued displacement of the left parotid gland. Airway: Nasal and oropharyngeal airways are unremarkable. There continues to be partial effacement of the left pyriform sinus. Epiglottis is unremarkable. Region of the cords appears unremarkable. Subglottic trachea is unremarkable. There is no retropharyngeal soft tissue swelling. Thyroid: Thyroid is unremarkable. Vascular: There continues to be mass effect with medial displacement of left carotid arteries. There is effacement and possible occlusion of the midportion of the left jugular vein. Nodes: There are multiple mildly enlarged nodes in left neck inferior to the mass and in the supraclavicular region. There is shotty left cervical nodes. Lung apices: There are bullous changes at the left apex unchanged. There are emphysematous changes at the right apex. Bony structures: There are no acute osseous abnormalities. IMPRESSION: Complex primarily cystic left posterior triangle mass not significantly changed since the prior study abscess versus neoplasm Additional nonemergent findings as described above.
[2017-03-03] MEDS ORDERED: Albuterol HFA 90 mcg/actuation (8 g) INH PRN (02:56)
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
[2017-03-03] MEDS ORDERED: Piperacill/Tazo 3.375gm in Dex 3.375 GM/50 ML BAG IVPB SCH (05:30)
[2017-03-03 09:08] VITALS: BP 130/87; PULSE 87; RESP 20; O2SAT 96
[2017-03-03] MEDS ORDERED: Phenytoin 100 mg/4 ml Oral Susp UD PO SCH (10:00)
[2017-03-03] MEDS ORDERED: Pantoprazole 40 mg EC Tab PO SCH (10:00)
[2017-03-03] MEDS ORDERED: Enoxaparin 40 mg Syringe SC SCH (10:00)
[2017-03-03] MEDS ORDERED: Vancomycin 1 gm/NS 200 ml 1 GM/200 ML BAG IVPB SCH (12:00)
== END 2017-03-03 12:23 | disposition left against medical advice (07) ==
LOC: C.ER 19:25 → SUPCPDRO 19:25 → UNDOADMIN 03-03 00:37 → C.9E 03-03 00:37 → UNDODISIN 03-03 12:19
DX: F11.10 Opioid abuse, uncomplicated (principal); R22.1 Localized swelling, mass and lump, neck; J44.1 Chronic obstructive pulmonary disease with (acute) exacerbation; B20 Human immunodeficiency virus [HIV] disease; F17.210 Nicotine dependence, cigarettes, uncomplicated
CPT/HCPCS: 70491; 71260; 74177; 80053; 82803; 85025; 85610; 85730; 87040; 96365; 96366; 96367; 96375; 99285; J1170; J2060; J2270; J2543; J3370; J7040; Q9967

== ENCOUNTER 2017-03-23 11:43 | Emergency (ER) | payer MEDICAID ==
[2017-03-23 12:12] VITALS: RESP 20; TEMP 100.2
[2017-03-23 13:23] VITALS: BP 104/68; PULSE 91; O2SAT 93
--- NOTE | 2017-03-23 15:43 | C.PDOC ---
History Of Present Illness 51 y/o female, with history of epilepsy, presents to the ER for evaluation after she had a witnessed seizure today. Patient states that she felt an aura and she sat down. She reports that there was a brief moment that she cannot recall. Patient notes that she had a seizure 2 weeks ago with normal frequency.Patient reports that she is compliant with her medication Dilantin. Patient denies fever,cough, chest pain, and SOB. Chief Complaint (Nursing): Seizure History Per: Patient History/Exam Limitations: no limitations Severity: Moderate Past Medical History Reviewed: Historical Data, Nursing Documentation, Vital Signs Vital Signs: Last Vital Signs Temp 100.2 F H 03/23/17 12:06 Pulse 91 H 03/23/17 13:22 Resp 20 03/23/17 13:22 BP 104/68 03/23/17 13:22 Pulse Ox 93 L 03/23/17 15:48 - Medical History PMH: Anxiety, Asthma, Bipolar Disorder, Bronchitis, COPD, CVA (R MCA territory with encephalomalacia), Depression, Emphysema, HIV (from previous chart), Seizures (s/p craniotomy) Denies: Diabetes, Hepatitis, HTN, Chronic Kidney Disease, Sexually Transmitted Disease Other Surgeries: Hx of surgeries - [facility] Procedures DETOXIFICATION SERVICES FOR SUBSTANCE ABUSE TREATMENT (02/05/17) DRAINAGE OF POST NECK SUBCU/FASCIA, PERC APPROACH, DIAGN (02/05/17) Family History: States: No Known Family Hx - Social History Hx Tobacco Use: Yes Hx Alcohol Use: No Hx Substance Use: Yes - Immunization History Hx Tetanus Toxoid Vaccination: No Hx Influenza Vaccination: No Hx Pneumococcal Vaccination: No Review Of Systems Except As Marked, All Systems Reviewed And Found Negative. Constitutional: Negative for: Fever, Chills Cardiovascular: Negative for: Chest Pain Respiratory: Negative for: Cough, Shortness of Breath Neurological: Positive for: Seizures Physical Exam - Physical Exam Appears: No Acute Distress Skin: Normal Color, Warm Head: Atraumatic, Normacephalic Eye(s): bilateral: Normal Inspection Nose: Normal Oral Mucosa: Moist Neck: Supple, Other (left sided neck mass (unchanged as per patient)) Chest: Symmetrical Cardiovascular: Rhythm Regular Respiratory: Normal Breath Sounds, No Accessory Muscle Use, No Rales, No Rhonchi , No Wheezing Extremity: Normal ROM Neurological/Psych: Oriented x3, Normal Speech, Normal Motor, Normal Sensation ED Course And Treatment O2 Sat by Pulse Oximetry: 93 (RA) Pulse Ox Interpretation: Abnormal Progress Note: Patient given Motrin. Patient did not want to undergo labwork. Disposition - Disposition Referrals: Latisha Deleon, [Non-Staff] - Disposition: HOME/ ROUTINE Disposition Time: 13:10 Condition: GOOD Additional Instructions: Thank you for letting us take care of you today. The emergency medical care you received today was directed at your acute symptoms. If you were prescribed any medication, please fill it and take as directed. It may take several days for your symptoms to resolve. Return to the Emergency Department if your symptoms worsen, do not improve, or if you have any other problems. Please contact your doctor or call one of the physicians/clinics you have been referred to that are listed on the Patient Visit Information form that is included in your discharge packet. Bring any paperwork you were given at discharge with you along with any medications you are taking to your follow up visit. Our treatment cannot replace ongoing medical care by a primary care provider (PCP) outside of the emergency department. Thank you for allowing the [facility] team to be part of your care today. Follow up with your primary doctor in 2-3 days for re-evaluation and further management. Prescriptions: Albuterol HFA [Ventolin HFA 90 mcg/actuation (8 g)] 2 puff IH [id number] PRN #1 puff PRN Reason: Wheezing Ibuprofen [Motrin] 800 mg PO Q6 PRN #20 tab PRN Reason: Pain, Moderate (4-7) Instructions: Epilepsy in Adults Forms: [employer] (Nauruan) - Clinical Impression Clinical Impression: Epilepsy - Scribe Statement The provider has reviewed the documentation as recorded by the Nancy Medrano Provider Attestation All medical record entries made by the Scribe were at my direction and personally dictated by me. I have reviewed the chart and agree that the record accurately reflects my personal performance of the history, physical exam, medical decision making, and the department course for this patient. I have also personally directed, reviewed, and agree with the discharge instructions and disposition.
== END 2017-03-23 13:23 | disposition home or self-care (01) ==
LOC: C.ER 11:43
DX: G40.909 Epilepsy, unspecified, not intractable, without status epilepticus (principal)

== ENCOUNTER 2017-04-01 03:04 | Emergency (ER) | payer MEDICAID ==
--- NOTE | 2017-04-01 03:30 | C.PDOC ---
History Of Present Illness Patient is a 51 y/o female who presents to the ED with a complaint of painful mass on the left side of the neck. Patient previously received CT and biopsy in [facility] ED and is scheduled for surgery on the mass on Monday at [facility]. Patient has history of heroin abuse. Patient looks intoxicated and is falling asleep during conversation in ED. No other physical complaints at this time. Time Seen by Provider: 04/01/17 03:19 Chief Complaint (Nursing): Abnormal Skin Integrity History Per: Patient History/Exam Limitations: no limitations Onset/Duration Of Symptoms: Hrs Current Symptoms Are (Timing): Still Present Quality Of Symptoms: Painful Recent travel outside of the [place]: No Past Medical History Reviewed: Historical Data, Nursing Documentation, Vital Signs Vital Signs: Last Vital Signs Temp 98.5 F 04/01/17 03:29 Pulse 88 04/01/17 05:15 Resp 14 04/01/17 05:15 BP 128/72 04/01/17 05:15 Pulse Ox 97 04/01/17 05:15 - Medical History PMH: Anxiety, Asthma, Bipolar Disorder, Bronchitis, COPD, CVA (R MCA territory with encephalomalacia), Depression, Emphysema, HIV (from previous chart), Seizures (s/p craniotomy) Denies: Diabetes, Hepatitis, HTN, Chronic Kidney Disease, Sexually Transmitted Disease Surgical History: No Surg Hx - [facility] Procedures DETOXIFICATION SERVICES FOR SUBSTANCE ABUSE TREATMENT (02/05/17) DRAINAGE OF POST NECK SUBCU/FASCIA, PERC APPROACH, DIAGN (02/05/17) Family History: States: No Known Family Hx - Social History Hx Tobacco Use: Yes Hx Alcohol Use: No Hx Substance Use: Yes - Immunization History Hx Tetanus Toxoid Vaccination: No Hx Influenza Vaccination: No Hx Pneumococcal Vaccination: No Review Of Systems Constitutional: Negative for: Fever, Chills Cardiovascular: Negative for: Chest Pain, Palpitations Respiratory: Negative for: Shortness of Breath Skin: Positive for: Other (painful mass on left side of neck ). Negative for: Rash Physical Exam - Physical Exam Appears: Well, Non-toxic Skin: Other (large mass on left side of neck; negative erythema or open sores; no signs of infection) Head: Atraumatic, Normacephalic Eye(s): bilateral: Normal Inspection Oral Mucosa: Moist Throat: Other (no difficulty swallowing) Cardiovascular: Rhythm Regular, No Murmur Respiratory: Normal Breath Sounds, No Accessory Muscle Use, No Rales, No Rhonchi , No Wheezing, Other (no difficulty breathing, normal voice) Neurological/Psych: Oriented x3, Normal Speech, Normal Cognition ED Course And Treatment Progress Note: Toradol adminsitered. Patient requested Rxfor Ibuprofen and Ventolin pump. Disposition - Disposition Disposition: HOME/ ROUTINE Disposition Time: 03:39 Condition: STABLE Additional Instructions: Follow up in [facility] on Monday, April 03, 2017 for your scheduled surgery. Return to ED if feel worse. Prescriptions: Ibuprofen [Motrin Tab] 600 mg PO Q8 #30 tab Albuterol HFA [Ventolin HFA 90 mcg/actuation (8 g)] 1 puff IH .Q4-6H #1 inhaler Forms: [facility] (Czech), General Discharge Instructions - Clinical Impression Clinical Impression: Neck mass - Scribe Statement The provider has reviewed the documentation as recorded by the Scribe Loly Swanson All medical record entries made by the Scribe were at my direction and personally dictated by me. I have reviewed the chart and agree that the record accurately reflects my personal performance of the history, physical exam, medical decision making, and the department course for this patient. I have also personally directed, reviewed, and agree with the discharge instructions and disposition.
[2017-04-01 03:35] VITALS: TEMP 98.5
[2017-04-01 06:03] VITALS: BP 128/72; PULSE 88; RESP 14; O2SAT 97
== END 2017-04-01 06:02 | disposition home or self-care (01) ==
LOC: C.ER 03:04
DX: R22.1 Localized swelling, mass and lump, neck (principal); Z72.0 Tobacco use
CPT/HCPCS: 96372; 99283; J1885

== ENCOUNTER 2017-04-05 08:47 | Emergency (ER) | payer MEDICAID ==
[2017-04-05 09:04] VITALS: TEMP 97.8; O2SAT 96
[2017-04-05] MEDS ORDERED: Sodium Chloride 0.9% 1,000 ML IV ONE (09:10)
--- NOTE | 2017-04-05 09:52 | C.PDOC ---
History Of Present Illness Patient BIBA for heroin overdose, found by EMS with pinpoint pupils, somnolent with respiratory depression - given Narcan 2mg intranasally and 0.8mg via IO. Time Seen by Provider: 04/05/17 08:58 Chief Complaint (Nursing): Medical Clearance History Per: EMS History/Exam Limitations: clinical condition Onset/Duration Of Symptoms: Unknown Current Symptoms Are (Timing): Better Past Medical History Reviewed: Historical Data, Nursing Documentation, Vital Signs Vital Signs: Last Vital Signs Temp 97.8 F 04/05/17 09:02 Pulse 80 04/05/17 10:57 Resp 14 04/05/17 10:57 BP 105/69 04/05/17 10:57 Pulse Ox 96 04/05/17 15:36 - Medical History PMH: Anxiety, Asthma, Bipolar Disorder, Bronchitis, COPD, CVA (R MCA territory with encephalomalacia), Depression, Emphysema, HIV (from previous chart), Seizures (s/p craniotomy) - [facility] Procedures DETOXIFICATION SERVICES FOR SUBSTANCE ABUSE TREATMENT (02/05/17) DRAINAGE OF POST NECK SUBCU/FASCIA, PERC APPROACH, DIAGN (02/05/17) Family History: States: No Known Family Hx - Social History Hx Tobacco Use: Yes Hx Alcohol Use: No Hx Substance Use: Yes - Immunization History Hx Tetanus Toxoid Vaccination: No Hx Influenza Vaccination: No Hx Pneumococcal Vaccination: No Review Of Systems Review Of Systems: ROS cannot be obtained secondary to pt's inabilty to answer questions. Physical Exam - Physical Exam Appears: Unkempt, Other (drowsy, arousable to sternal rub) Head: Abrasion (right forehead abrasion/superficial laceration) Eye(s): bilateral: Other (dilated approx 6mm and sluggish ) Oral Mucosa: Moist Neck: Other (left lateral neck MAHAD drain ) Cardiovascular: Rhythm Regular Respiratory: Normal Breath Sounds, No Rales, No Rhonchi, No Wheezing Extremity: Normal ROM, No Deformity Extremity: Bilateral: Atraumatic, Normal Color And Temperature, Normal ROM ED Course And Treatment O2 Sat by Pulse Oximetry: 96 (RA) Pulse Ox Interpretation: Normal Progress Note: Patient placed on ekg monitor tech. Blood work, CT head ordered. Disposition Counseled Patient/Family Regarding: Studies Performed, Diagnosis, Need For Followup - Disposition Referrals: [facility] [Outside] Disposition: HOME/ ROUTINE Disposition Time: 15:40 Condition: STABLE Additional Instructions: FOLLOW UP WITH YOUR DOCTOR/CLINIC IN 1-2 DAYS STOP USING HEROIN!! Instructions: Narcotic Overdose Forms: [facility] (Czech) Print Language: THAI - Clinical Impression Clinical Impression: Heroin overdose
[2017-04-05 10:58] VITALS: BP 105/69; PULSE 80; RESP 14
--- NOTE | 2017-04-05 11:14 | CT ---
PROCEDURE: CT HEAD WITHOUT CONTRAST. HISTORY: Head injury, HEROIN OD COMPARISON: 01/04/2017. TECHNIQUE: Axial computed tomography images were obtained through the head/brain without intravenous contrast. Radiation dose: Total exam DLP = 1260.98 mGy-cm. This CT exam was performed using one or more of the following dose reduction techniques: Automated exposure control, adjustment of the mA and/or kV according to patient size, and/or use of iterative reconstruction technique. FINDINGS: HEMORRHAGE: No intracranial hemorrhage. BRAIN: Salas-white matter differentiation is preserved. There is no mass, mass effect or abnormal extra-axial fluid collection. There is redemonstration of cystic encephalomalacia in the right parietal and temporal lobes with volume loss and ex vacuo dilatation of the right lateral ventricle. VENTRICLES: No hydrocephalus. CALVARIUM: Status post right temporal craniotomy. PARANASAL SINUSES: Mild mucoperiosteal thickening. MASTOID AIR CELLS: Unremarkable as visualized. No inflammatory changes. OTHER FINDINGS: None. IMPRESSION: No acute intracranial abnormality. Known cystic encephalomalacia in the right parietal and temporal lobes, sequela of remote insult.
== END 2017-04-05 15:49 | disposition home or self-care (01) ==
LOC: C.ER 08:47
DX: T40.1X1A Poisoning by heroin, accidental (unintentional), initial encounter (principal); R40.0 Somnolence; Z72.0 Tobacco use

== ENCOUNTER 2017-04-13 18:10 | Emergency (ER) | payer MEDICAID ==
[2017-04-13 18:28] VITALS: BP 142/100; PULSE 87; RESP 15; TEMP 98.8; O2SAT 98
--- NOTE | 2017-04-13 19:10 | C.PDOC ---
History Of Present Illness Patient brought in by [place] police for a questionable seizure, however , patient denies any seizure activity. Patient admits to using heroin today but refuses to be examined. On initial observation, patient is pleasant, appears to be ambulating without assistance, and continues to have left neck mass for which she has been seen and worked up for on previous visits. Patient has not followed up since then and does not want any other medical attention at this time. When I came back to reassess the patient, she had eloped. Time Seen by Provider: 04/13/17 19:10 Chief Complaint (Nursing): Seizure History Per: Patient, EMS History/Exam Limitations: no limitations Recent Seizure Activity Began: Unknown Precipitating Factor(s): None Post-ictal Period: No Severity: None Pain Scale Rating Of: 0 Recent travel outside of the [place]: No Additional History Per: Patient Past Medical History Reviewed: Historical Data, Nursing Documentation, Vital Signs Vital Signs: Last Vital Signs Temp 98.8 F 04/13/17 18:21 Pulse 87 04/13/17 18:21 Resp 15 04/13/17 18:21 BP 142/100 H 04/13/17 18:21 Pulse Ox 98 04/13/17 19:23 - Medical History PMH: Anxiety, Asthma, Bipolar Disorder, Bronchitis, COPD, CVA (R MCA territory with encephalomalacia), Depression, Emphysema, HIV (from previous chart), Seizures (s/p craniotomy) - [facility] Procedures DETOXIFICATION SERVICES FOR SUBSTANCE ABUSE TREATMENT (02/05/17) DRAINAGE OF POST NECK SUBCU/FASCIA, PERC APPROACH, DIAGN (02/05/17) Family History: States: No Known Family Hx - Social History Hx Tobacco Use: Yes Hx Alcohol Use: No Hx Substance Use: Yes - Immunization History Hx Tetanus Toxoid Vaccination: No Hx Influenza Vaccination: No Hx Pneumococcal Vaccination: No ED Course And Treatment O2 Sat by Pulse Oximetry: 98 Pulse Ox Interpretation: Normal Disposition Counseled Patient/Family Regarding: Studies Performed, Diagnosis, Need For Followup - Disposition Referrals: [facility] [Outside] Disposition: ELOPEMENT - ER ONLY Disposition Time: 19:10 Condition: UNKNOWN Instructions: Polysubstance Abuse (DC) Forms: [facility] (Malaysian) - Clinical Impression Clinical Impression: Heroin abuse, Neck mass - Scribe Statement The provider has reviewed the documentation as recorded by the Scribe King Pennes All medical record entries made by the Scribjocelyn were at my direction and personally dictated by me. I have reviewed the chart and agree that the record accurately reflects my personal performance of the history, physical exam, medical decision making, and the department course for this patient. I have also personally directed, reviewed, and agree with the discharge instructions and disposition.
== END 2017-04-13 19:19 | disposition left against medical advice (07) ==
LOC: C.ER 18:10
DX: F11.10 Opioid abuse, uncomplicated (principal); R22.1 Localized swelling, mass and lump, neck; Z72.0 Tobacco use

== ENCOUNTER 2017-04-15 04:13 | Emergency (ER) | payer MEDICAID ==
[2017-04-15 04:38] VITALS: RESP 20; TEMP 97.3; O2SAT 97
--- NOTE | 2017-04-15 06:02 | C.PDOC ---
History Of Present Illness Patient is a heroin addict and presents to ED stating she wants a place to stay. Patient also complains of coughing. Denies any other physical complaints. Patient has large left neck mass unchanged from previous visits. Patient has not followed up with PMD as instructed. Time Seen by Provider: 04/15/17 04:43 Chief Complaint (Nursing): Shortness Of Breath History Per: Patient History/Exam Limitations: no limitations Onset/Duration Of Symptoms: Hrs Current Symptoms Are (Timing): Still Present Current Respiratory Medications: See Home Med List Associated Symptoms: denies: Fever, Chills Recent travel outside of the [place]: No Past Medical History Reviewed: Historical Data, Nursing Documentation, Vital Signs Vital Signs: Last Vital Signs Temp 97.3 F L 04/15/17 04:30 Pulse 71 04/15/17 04:30 Resp 20 04/15/17 04:35 BP Pulse Ox 97 04/15/17 06:10 - Medical History PMH: Anxiety, Asthma, Bipolar Disorder, Bronchitis, COPD, CVA (R MCA territory with encephalomalacia), Depression, Emphysema, HIV, Seizures (s/p craniotomy) - [facility] Procedures DETOXIFICATION SERVICES FOR SUBSTANCE ABUSE TREATMENT (02/05/17) DRAINAGE OF POST NECK SUBCU/FASCIA, PERC APPROACH, DIAGN (02/05/17) Family History: States: No Known Family Hx - Social History Hx Tobacco Use: Yes Hx Alcohol Use: No Hx Substance Use: Yes - Immunization History Hx Tetanus Toxoid Vaccination: No Hx Influenza Vaccination: No Hx Pneumococcal Vaccination: No Review Of Systems Constitutional: Negative for: Fever, Chills Respiratory: Positive for: Cough Gastrointestinal: Negative for: Nausea, Vomiting, Diarrhea Neurological: Negative for: Weakness, Numbness Psych: Negative for: Suicidal ideation Physical Exam - Physical Exam Appears: Non-toxic, No Acute Distress Skin: Warm, Dry Head: Normacephalic Eye(s): bilateral: Normal Inspection Oral Mucosa: Moist Neck: Supple Chest: Symmetrical, No Tenderness Cardiovascular: Rhythm Regular Respiratory: No Rales, Rhonchi, No Wheezing Neurological/Psych: Oriented x3, Normal Speech, Normal Cognition ED Course And Treatment O2 Sat by Pulse Oximetry: 97 (RA) Pulse Ox Interpretation: Normal Reevaluation Time: 06:29 Reassessment Condition: Improved Disposition Counseled Patient/Family Regarding: Studies Performed, Diagnosis, Need For Followup, Rx Given - Disposition Referrals: [facility] [Outside] Disposition: HOME/ ROUTINE Disposition Time: 06:30 Condition: FAIR Prescriptions: Albuterol HFA [Ventolin HFA 90 mcg/actuation (8 g)] 2 puff IH [id number] #1 puff Azithromycin [Zithromax Tri-Adan] 500 mg PO DAILY #3 tab Instructions: Acute Bronchitis, Adult (DC), Polysubstance Abuse (DC) Forms: [employer] (Iranian) - Clinical Impression Clinical Impression: Substance abuse, Bronchitis - Scribe Statement The provider has reviewed the documentation as recorded by the Scribjocelyn العراقي All medical record entries made by the Rishiibe were at my direction and personally dictated by me. I have reviewed the chart and agree that the record accurately reflects my personal performance of the history, physical exam, medical decision making, and the department course for this patient. I have also personally directed, reviewed, and agree with the discharge instructions and disposition.
[2017-04-15 06:38] VITALS: PULSE 88
== END 2017-04-15 06:48 | disposition home or self-care (01) ==
LOC: C.ER 04:13
DX: J40 Bronchitis, not specified as acute or chronic (principal); F19.10 Other psychoactive substance abuse, uncomplicated; Z72.0 Tobacco use